=== PATIENT | male | born 1950 | race Caucasian/White ===

== ENCOUNTER → 2017-06-22 10:41 | Outpatient (CLI) | payer MEDICARE, SELFPAY | PROVIDERS: Family Provider Family Medicine Geriatric Medicine; PCP Family Medicine Geriatric Medicine; Visit Provider Nurse Practitioner Acute Care | DX: G47.33 Obstructive sleep apnea (adult) (pediatric) (principal) | CPT/HCPCS: 98960; G0463 ==

== ENCOUNTER → 2017-07-05 13:38 | Outpatient (CLI) | payer MEDICARE, SELFPAY | PROVIDERS: Family Provider Family Medicine Geriatric Medicine; PCP Family Medicine Geriatric Medicine; Visit Provider Family Medicine Geriatric Medicine | DX: R68.83 Chills (without fever) (principal) | CPT/HCPCS: 87633 ==

== ENCOUNTER → 2017-08-08 11:59 | Outpatient (CLI) | payer MEDICARE, SELFPAY ==
--- NOTE | 2017-08-08 12:25 | RAD_ITS ---
STUDY: X-RAY CHEST REASON FOR EXAM: Male, 67 years old. Shortness of breath. TECHNIQUE: PA and lateral views of the chest. COMPARISON: None. FINDINGS: Mild elevation of the left hemidiaphragm with increased markings at the left lung base suggestive of a linear scarring or atelectasis of the lingular segment of the left upper lobe. There is no demonstrated pleural abnormality. Normal size heart. Normal mediastinum and obed. Normal visualized pulmonary arteries. There is atherosclerotic tortuosity of the aortic arch and descending thoracic aorta. There are diffuse degenerative changes of the visualized thoracic spine. Normal visualized ribs, clavicles, and shoulders. There is no demonstrated abnormality of the visualized soft tissue structures of the upper abdomen. RAD/Chest PA and Lateral IMPRESSION: Increased linear markings at the left lung base suggestive of linear atelectasis and/or early infiltrate. Follow-up is recommended. Electronically Signed: Carols Menjivar MD at 12:44 EDT Tel [phone], Service support ,
[2017-08-08 12:57] LABS: Absolute Neutrophil Count 4.7 X10^3/uL (2.0-7.7); Basophil# 0.03 X10^3/uL; Basophil% 0.4 % (0-1); Eosinophil# 0.05 X10^3/uL; Eosinophils% 0.7 % (0-5); Hematocrit 46.9 % (40-54); Hemoglobin 15.9 g/dl (13.0-16.5); Lymphocyte % 21.8 % (19-41); Mean Corp Hgb Conc 33.9 g/gl (32-36); Mean Corpuscular Hgb 31.9 pg (27.0-32.0); Mean Corpuscular Volume 94.2 fL (80-94); Mean Platelet Vol. 9.1 fl (6.2-12.0); Monocyte# 0.58 X10^3/uL; Monocyte% 8.4 % (0-10); Neutrophil # 4.69 X10^3/uL (2.7-7.7); Neutrophil % 68.1 % (47-70); Platelet Count 200 K/mm3 (150-450); RBC Distribution Width CV 14.6 % (11.6-14.6); RBC Distribution Width SD 48.9 fl (35.1-43.9); Red Blood Count 4.98 M/mm3 (4.6-6.2); White Blood Count 6.9 K/mm3 (4.4-11.0)
[2017-08-08 13:00] LABS: POSITIVE COUNT NO; POSITIVE DIFFERENTIAL NO; POSITIVE MORPHOLOGY NO
[2017-08-08 13:03] LABS: D-Dimer Quantitative (DVT/PE) 0.45 FEU/ug/m (0.27-0.49)
[2017-08-08 13:15] LABS: BNP,B-Type NATRIURETIC PEPTIDE 13.6 pg/mL (0-100)
[2017-08-08 13:18] LABS: ALB/GLOB Ratio 1.2 RATIO (0.9-2.4); AST(SGOT) 41 U/L (15-37); Alanine Aminotransfer ALT/SGPT 49 U/L (16-61); Albumin, Serum 4.1 g/dL (3.2-5.0); Alkaline Phosphatase 75 U/L (45-117); Anion Gap 8 (5-15); BUN 23 mg/dL (7-18); BUN/Creat Ratio 22.8 RATIO (10-20); CPK Total, Creatine Kinase 263 U/L (39-308); Calcium,Total 9.8 mg/dL (8.5-10.1); Chloride 106 mmol/L (98-107); Creatinine, Serum 1.01 mg/dL (0.70-1.30); EST Glomerular Filtration Rate 79 mL/min (>60); Est Glom Filt Rate - Afr Amer 95 mL/min (>60); Globulin 3.4 g/dL (2.2-4.2); Glucose 83 mg/dL (74-106); Potassium 4.4 mmol/L (3.5-5.1); Protein, Total 7.5 g/dL (6.4-8.2); Sodium Level 144 mmol/L (136-145)
[2017-08-09 11:12] LABS: Myoglobin, Serum 98 ng/mL (28-72)
== END ==
PROVIDERS: Family Provider Family Medicine Geriatric Medicine; PCP Family Medicine Geriatric Medicine; Visit Provider Family Medicine Geriatric Medicine
DX: R07.9 Chest pain, unspecified (principal); R06.02 Shortness of breath
CPT/HCPCS: 36415; 71046; 80053; 82550; 83874; 83880; 84484; 85025; 85379

== ENCOUNTER → 2018-01-03 16:03 | Outpatient (CLI) | payer MEDICARE, SELFPAY ==
[2018-01-03 17:37] LABS: Vitamin D,25 Hydroxy 19.1 ng/mL (29.95-100.01)
[2018-01-03 17:55] LABS: ALB/GLOB Ratio 1.2 RATIO (0.9-2.4); AST(SGOT) 48 U/L (15-37); Alanine Aminotransfer ALT/SGPT 59 U/L (16-61); Alkaline Phosphatase 72 U/L (45-117); Anion Gap 10 (5-15); BUN 22 mg/dL (7-18); BUN/Creat Ratio 22.4 RATIO (10-20); Chloride 103 mmol/L (98-107); Creatinine, Serum 0.98 mg/dL (0.70-1.30); EST Glomerular Filtration Rate 81 mL/min (>60); Est Glom Filt Rate - Afr Amer 98 mL/min (>60); Globulin 3.4 g/dL (2.2-4.2); Glucose 93 mg/dL (74-106); PSA,Total - Annual Screen 2.03 ng/mL (0.00-4.00); Potassium 4.2 mmol/L (3.5-5.1); Protein, Total 7.4 g/dL (6.4-8.2); Sodium Level 140 mmol/L (136-145)
[2018-01-03 18:38] LABS: Hematocrit 46.4 % (40-54); Hemoglobin 15.3 g/dl (13.0-16.5); Mean Corpuscular Hgb 31.5 pg (27.0-32.0); Mean Corpuscular Volume 95.7 fL (80-94); Red Blood Count 4.85 M/mm3 (4.6-6.2); White Blood Count 7.8 K/mm3 (4.4-11.0)
[2018-01-03 18:39] LABS: Absolute Lymphocyte Count 1.76 X10^3/ul (0.83-4.51); Absolute Neutrophil Count 5.3 X10^3/uL (2.0-7.7); Basophil# 0.02 X10^3/uL; Basophil% 0.3 % (0-1); Eosinophils% 1.3 % (0-5); Lymphocyte # 1.76 X10^3/ul (4.0); Lymphocyte % 22.5 % (19-41); Mean Platelet Vol. 9.4 fl (6.2-12.0); Monocyte# 0.65 X10^3/uL; Monocyte% 8.3 % (0-10); Neutrophil # 5.29 X10^3/uL (2.7-7.7); Neutrophil % 67.5 % (47-70); POSITIVE COUNT NO; POSITIVE DIFFERENTIAL NO; POSITIVE MORPHOLOGY NO; Platelet Count 189 K/mm3 (150-450); RBC Distribution Width CV 14.2 % (11.6-14.6)
[2018-01-05 11:50] LABS: Hep C Antibodies <0.1 s/co ratio (0.0-0.9)
== END ==
PROVIDERS: Family Provider Family Medicine Geriatric Medicine; PCP Family Medicine Geriatric Medicine; Visit Provider Family Medicine Geriatric Medicine
DX: I10 Essential (primary) hypertension (principal); E55.9 Vitamin D deficiency, unspecified; Z12.5 Encounter for screening for malignant neoplasm of prostate; Z13.89 Encounter for screening for other disorder
CPT/HCPCS: 36415; 80053; 82306; 84153; 84443; 85025; 86803; G0103

== ENCOUNTER → 2018-10-04 20:00 | Outpatient (CLI) | payer MEDICARE, SELFPAY | PROVIDERS: Family Provider Family Medicine Geriatric Medicine; PCP Family Medicine Geriatric Medicine; Referring Provider Nurse Practitioner Family; Visit Provider Nurse Practitioner Family | DX: G47.33 Obstructive sleep apnea (adult) (pediatric) (principal) | CPT/HCPCS: 95811 ==

== ENCOUNTER → 2018-10-09 15:30 | Outpatient (CLI) | payer MEDICARE, SELFPAY ==
[2018-10-09 18:26] LABS: AST(SGOT) 36 U/L (15-37); Alanine Aminotransfer ALT/SGPT 52 U/L (16-61); Anion Gap 7 (5-15); BUN 31 mg/dL (7-18); BUN/Creat Ratio 31.2 RATIO (10-20); Chloride 108 mmol/L (98-107); Cholesterol 139 mg/dL (200); Creatinine, Serum 0.99 mg/dL (0.70-1.30); EST Glomerular Filtration Rate 80 mL/min (>60); Est Glom Filt Rate - Afr Amer 97 mL/min (>60); Glucose 104 mg/dL (74-106); High Density Lipoprotein 50 mg/dL; PSA,Total - Annual Screen 2.31 ng/mL (0.00-4.00); Potassium 4.5 mmol/L (3.5-5.1); Sodium Level 146 mmol/L (136-145); Thyroid Stim Hormone (TSH) 1.07 uIU/mL (0.358-3.74); Triglycerides 111 mg/dL; Very Low Density Lipoprotein 22 mg/dL (5-40)
== END ==
PROVIDERS: Family Provider Family Medicine; PCP Family Medicine; Referring Provider Family Medicine; Visit Provider Family Medicine
DX: I10 Essential (primary) hypertension (principal); K59.09 Other constipation; E78.5 Hyperlipidemia, unspecified
CPT/HCPCS: 36415; 80048; 80061; 84153; 84443; 84450; 84460; G0103

== ENCOUNTER → 2019-04-09 16:02 | Outpatient (CLI) | payer MEDICARE, SELFPAY ==
[2019-04-09 18:33] LABS: Anion Gap 4 (5-15); BUN 26 mg/dL (7-18); BUN/Creat Ratio 27.1 RATIO (10-20); Calcium,Total 9.3 mg/dL (8.5-10.1); Chloride 107 mmol/L (98-107); Creatinine, Serum 0.96 mg/dL (0.70-1.30); EST Glomerular Filtration Rate 83 mL/min (>60); Est Glom Filt Rate - Afr Amer 100 mL/min (>60); Glucose 77 mg/dL (74-106); Potassium 3.7 mmol/L (3.5-5.1); Sodium Level 142 mmol/L (136-145)
== END ==
PROVIDERS: Family Provider Family Medicine; PCP Family Medicine; Visit Provider Family Medicine
DX: I10 Essential (primary) hypertension (principal)
CPT/HCPCS: 36415; 80048

== ENCOUNTER → 2019-10-11 15:58 | Outpatient (CLI) | payer MEDICARE, SELFPAY ==
[2019-10-11 18:33] LABS: AST(SGOT) 36 U/L (15-37); Alanine Aminotransfer ALT/SGPT 34 U/L (16-61); Anion Gap 6 (5-15); BUN 25 mg/dL (7-18); Calcium,Total 9.9 mg/dL (8.5-10.1); Chloride 107 mmol/L (98-107); Cholesterol 135 mg/dL (200); Creatinine, Serum 1.04 mg/dL (0.70-1.30); EST Glomerular Filtration Rate 75 mL/min (>60); Est Glom Filt Rate - Afr Amer 91 mL/min (>60); Glucose 85 mg/dL (74-106); High Density Lipoprotein 48 mg/dL; PSA,Total - Annual Screen 2.48 ng/mL (0.00-4.00); Potassium 3.8 mmol/L (3.5-5.1); Sodium Level 143 mmol/L (136-145); Triglycerides 127 mg/dL; Very Low Density Lipoprotein 25 mg/dL (5-40)
== END ==
PROVIDERS: PCP Family Medicine; Visit Provider Family Medicine
DX: Z00.00 Encounter for general adult medical examination without abnormal findings (principal); I10 Essential (primary) hypertension; E78.5 Hyperlipidemia, unspecified
CPT/HCPCS: 36415; 80048; 80061; 84153; 84450; 84460; G0103

== ENCOUNTER → 2020-04-15 11:13 | Outpatient (CLI) | payer MEDICARE, SELFPAY ==
[2020-04-15 13:16] LABS: Anion Gap 5 (5-15); BUN 24 mg/dL (7-18); Chloride 104 mmol/L (98-107); EST Glomerular Filtration Rate 79 mL/min (>60); Est Glom Filt Rate - Afr Amer 95 mL/min (>60); Glucose 87 mg/dL (74-106); Potassium 3.7 mmol/L (3.5-5.1); Sodium Level 141 mmol/L (136-145)
== END ==
PROVIDERS: PCP Family Medicine; Referring Provider Family Medicine; Visit Provider Family Medicine
DX: I10 Essential (primary) hypertension (principal)
CPT/HCPCS: 36415; 80048

== ENCOUNTER → 2021-03-18 11:02 | Outpatient (CLI) | payer MEDICARE, SELFPAY ==
[2021-03-18 12:51] LABS: ALB/GLOB Ratio 1.1 RATIO (0.9-2.4); AST(SGOT) 56 U/L (15-37); Alanine Aminotransfer ALT/SGPT 63 U/L (16-61); Albumin, Serum 4.1 g/dL (3.2-5.0); Alkaline Phosphatase 74 U/L (45-117); Anion Gap 5 (5-15); BUN 27 mg/dL (7-18); BUN/Creat Ratio 27.2 RATIO (10-20); Calcium,Total 9.8 mg/dL (8.5-10.1); Chloride 108 mmol/L (98-107); Cholesterol 139 mg/dL (200); Creatinine, Serum 0.99 mg/dL (0.70-1.30); EST Glomerular Filtration Rate 79 mL/min (>60); Est Glom Filt Rate - Afr Amer 96 mL/min (>60); Globulin 3.6 g/dL (2.2-4.2); Glucose 95 mg/dL (74-106); High Density Lipoprotein 51 mg/dL; PSA,Total - Annual Screen 4.19 ng/mL (0.00-4.00); Potassium 3.5 mmol/L (3.5-5.1); Protein, Total 7.7 g/dL (6.4-8.2); Sodium Level 140 mmol/L (136-145); Triglycerides 71 mg/dL; Very Low Density Lipoprotein 14 mg/dL (5-40)
== END ==
PROVIDERS: PCP Family Medicine; Referring Provider Family Medicine; Visit Provider Nurse Practitioner Family
DX: I10 Essential (primary) hypertension (principal); E78.5 Hyperlipidemia, unspecified; Z12.5 Encounter for screening for malignant neoplasm of prostate
CPT/HCPCS: 36415; 80053; 80061; 84153; G0103

== ENCOUNTER 2021-05-27 17:49 | Outpatient (CLI) | payer MEDICARE, SELFPAY | END 2021-05-27 23:59 | disposition short-term general hospital (02) | PROVIDERS: PCP Family Medicine; Visit Provider Nurse Practitioner Family | DX: U07.1 COVID-19 (principal) | CPT/HCPCS: 87635; U0003; U0005 ==

== ENCOUNTER 2021-09-10 08:34 | Outpatient (CLI) | payer MEDICARE, SELFPAY ==
[2021-09-10 10:30] LABS: Anion Gap 4 (5-15); BUN 29 mg/dL (7-18); BUN/Creat Ratio 26.4 RATIO (10-20); Calcium,Total 10.3 mg/dL (8.5-10.1); Chloride 106 mmol/L (98-107); EST Glomerular Filtration Rate 70 mL/min (>60); Est Glom Filt Rate - Afr Amer 85 mL/min (>60); Glucose 103 mg/dL (74-106); Potassium 3.7 mmol/L (3.5-5.1); Sodium Level 140 mmol/L (136-145)
== END 2021-09-10 23:59 | disposition home or self-care (01) ==
LOC: MFPLAB 08:35
PROVIDERS: PCP Family Medicine; Visit Provider Family Medicine
DX: I10 Essential (primary) hypertension (principal)
CPT/HCPCS: 36415; 80048

== ENCOUNTER → 2021-12-28 | Outpatient (CLI) | payer MEDICARE, SELFPAY ==
--- NOTE | 2021-12-28 10:49 | RAD_ITS ---
STUDY: X-RAY CHEST REASON FOR EXAM: Male, 71 years old. SHORT OF BREATH TECHNIQUE: PA and lateral views of the chest. COMPARISON: Comparison is made with prior study 08/08/2017. FINDINGS: Stable mild elevation of the left hemidiaphragm. Minimal increased markings at the lung bases suggestive of a mild scarring. There is no demonstrated pleural abnormality. Normal size heart. Normal mediastinum and obed. Normal visualized pulmonary arteries. There is atherosclerotic tortuosity of the aortic arch and descending thoracic aorta. There are diffuse degenerative changes of the visualized thoracic spine. Normal visualized ribs, clavicles, and shoulders. There is no demonstrated abnormality of the visualized soft tissue structures of the upper abdomen. RAD/Chest PA and Lateral IMPRESSION: No acute abnormality is seen. Electronically Signed: Carlos Menjivar MD at 13:09 EDT ,
[2021-12-28 12:31] LABS: Absolute Lymphocyte Count 1.41 X10^3/uL (0.83-4.51); Absolute Neutrophil Count 3.5 X10^3/uL (2.0-7.7); Basophil# 0.03 X10^3/uL; Basophil% 0.5 % (0-1); Eosinophil# 0.16 X10^3/uL; Eosinophils% 2.8 % (0-5); Hematocrit 44.4 % (40-54); Lymphocyte # 1.41 X10^3/ul (0.83-4.51); Mean Corp Hgb Conc 33.8 g/dL (32-36); Mean Corpuscular Hgb 32.1 pg (27.0-32.0); Mean Corpuscular Volume 94.9 fL (80-94); Mean Platelet Vol. 9.6 fl (6.2-12.0); Monocyte# 0.56 X10^3/uL; Monocyte% 9.9 % (0-10); NRBC Flagged by Analyzer 0 % (0-5); Neutrophil # 3.45 X10^3/uL (2.7-7.7); Neutrophil % 61.3 % (47-70); Platelet Count 194 K/mm3 (150-450); RBC Distribution Width SD 49.1 fl (35.1-43.9); Red Blood Count 4.68 M/mm3 (4.6-6.2); White Blood Count 5.6 K/mm3 (4.4-11.0)
[2021-12-28 12:44] LABS: Vitamin B12 753 pg/mL (211-911)
[2021-12-28 12:52] LABS: ALB/GLOB Ratio 1.3 RATIO (0.9-2.4); AST(SGOT) 59 U/L (15-37); Alanine Aminotransfer ALT/SGPT 80 U/L (16-61); Albumin, Serum 4.2 g/dL (3.2-5.0); Alkaline Phosphatase 74 U/L (45-117); Anion Gap 2 (5-15); BUN 25 mg/dL (7-18); BUN/Creat Ratio 24.3 RATIO (10-20); Calcium,Total 10.5 mg/dL (8.5-10.1); Chloride 106 mmol/L (98-107); Creatinine, Serum 1.03 mg/dL (0.70-1.30); EST Glomerular Filtration Rate 76 mL/min (>60); Est Glom Filt Rate - Afr Amer 92 mL/min (>60); Globulin 3.2 g/dL (2.2-4.2); Glucose 96 mg/dL (74-106); Potassium 3.4 mmol/L (3.5-5.1); Protein, Total 7.4 g/dL (6.4-8.2); Sodium Level 141 mmol/L (136-145); Thyroid Stim Hormone (TSH) 2.75 uIU/mL (0.358-3.74)
[2021-12-29 12:02] LABS: Internal QC Validated? YES +Cl - CLEAR BKGD; Monotest Negative (Negative)
== END | disposition home or self-care (01) ==
LOC: MTLAB 10:48
PROVIDERS: PCP Family Medicine; Referring Provider Family Medicine; Visit Provider Family Medicine
DX: R06.02 Shortness of breath (principal); R53.83 Other fatigue
CPT/HCPCS: 36415; 71046; 80053; 82607; 84443; 85025; 86308

== ENCOUNTER → 2022-01-04 | Outpatient (CLI) | payer MEDICARE, SELFPAY ==
--- NOTE | 2022-01-04 08:01 | US_ITS ---
STUDY: ABDOMINAL ULTRASOUND - RIGHT UPPER QUADRANT REASON FOR VISIT: Male, 71 years old elevated LFTs TECHNIQUE: Ultrasound evaluation of the right upper quadrant was performed with real-time and static wade-scale imaging. TECHNICAL QUALITY: Adequate. COMPARISON: None. FINDINGS: Liver: The liver measures 16.2 cm. There is increased echogenicity consistent with fatty infiltration. The bile ducts are within normal limits. There is hepatic color flow. The direction of portal flow is hepatopetal. There is no demonstrated mass lesion. Gallbladder: Normal distended gallbladder. The gallbladder wall measures 2 mm. There is a negative sonographic Shepherd''s sign. There is no pericholecystic fluid. There are no gallstones. Common Bile Duct (C.B.D.): The common bile duct measures 5 mm. Pancreas: Normal size of the head, body and tail of the pancreas. There is increased echogenicity of the pancreas. There is no demonstrated pancreatic mass or cyst. Right Kidney: Normal size of the right kidney. The right kidney measures 12.1 x 6.3 x 5.4 cm. Normal renal cortex. The right cortex measures 1.4 cm. There is no demonstrated renal mass or cyst. There is no right hydronephrosis. US/Abdomen Limited IMPRESSION: Fatty infiltration of the liver, no discrete lesion Nonspecific echogenic pancreas Electronically Signed: Cisco Lai MD at 9:13 EDT ,
== END | disposition home or self-care (01) ==
LOC: CVS 08:00
PROVIDERS: PCP Family Medicine; Referring Provider Family Medicine; Visit Provider Family Medicine
DX: R06.02 Shortness of breath (principal)
CPT/HCPCS: 76705

== ENCOUNTER → 2022-01-10 | Outpatient (CLI) | payer MEDICARE, SELFPAY ==
--- NOTE | 2022-01-10 10:48 | ECHOD_ITS ---
Reason For Study: SOB Procedure This was a 2D Doppler, Color Flow transthoracic echocardiogram. Exam performed in department. Left Ventricle Normal LV size. Left ventricular systolic function is normal. The estimated ejection fraction is 60 %. No regional wall motion abnormalities noted. Right Ventricle Normal RV size. Normal systolic function. Atria Normal left atrium. Normal right atrium. Patent foramen ovale. Mitral Valve Normal mitral valve. Mild (1+) eccentric mitral valve insufficiency. Tricuspid Valve Normal tricuspid valve. Great Vessels Normal aortic root. The pulmonary artery is normal size. Normal inferior vena cava. Pericardium/Pleural No pericardial effusion. Medication 22 gauge I.V. with prn adaptor inserted into right arm. Performed a rapid injection of agitated mix of 9 cc saline and 1cc air to assess for atrial septal defect. MMode/2D Measurements & Calculations RVDd: 4.2 cm Ao root diam: 3.5 cm LAV(MOD-sp4): 94.5 ml LVAd ap4: 38.1 cm2 SV(MOD-sp4): 76.1 ml SV(sp4-el): 79.2 ml LVLd ap4: 9.5 cm EDV(MOD-sp4): 129.9 ml EDV(sp4-el): 130.3 ml LVAs ap4: 21.7 cm2 LVLs ap4: 7.8 cm ESV(MOD-sp4): 53.9 ml ESV(sp4-el): 51.0 ml EF(MOD-sp4): 58.5 % EF(sp4-el): 60.8 % LA dimension(2D): 4.3 cm LA A4 area: 28.8 cm2 RA A4 area: 23.8 cm2 Time Measurements MV dec time: 0.20 sec Doppler Measurements & Calculations MV E max leonel: 48.4 cm/sec Lat Peak E' Leonel: 12.5 cm/sec Med Peak E' Leonel: 7.2 cm/sec MV A max leonel: 72.1 cm/sec E/E' lat: 3.9 E/E' med: 6.7 MV E/A: 0.67 MV V2 max: 71.4 cm/sec MV dec slope: 258.5 cm/sec2 Ao V2 max: 122.6 cm/sec MV max P.0 mmHg Ao max P.0 mmHg MV V2 mean: 40.6 cm/sec Ao V2 mean: 85.7 cm/sec MV mean P.75 mmHg Ao mean P.4 mmHg MV V2 VTI: 24.8 cm Ao V2 VTI: 26.6 cm LV V1 max: 99.3 cm/sec PA V2 max: 95.4 cm/sec TR max leonel: 262.9 cm/sec LV V1 max P.0 mmHg TR max P.6 mmHg LV V1 mean P.0 mmHg LV V1 mean: 66.1 cm/sec LV V1 VTI: 20.9 cm ECHO/Echo Complete Interpretation Summary Normal LV size. Left ventricular systolic function is normal. The estimated ejection fraction is 60 %. Patent foramen ovale. Mild (1+) eccentric mitral valve insufficiency. Ordering Physician: Jazmin Frost Referring Physician: Jazmin Frost Performed By: Sapna Noel RCS
== END | disposition home or self-care (01) ==
LOC: CVS 10:47
PROVIDERS: PCP Family Medicine; Referring Provider Family Medicine; Visit Provider Family Medicine
DX: R06.02 Shortness of breath (principal)
CPT/HCPCS: 93306; A4216

== ENCOUNTER → 2022-09-06 | Outpatient (CLI) | payer MEDICARE, SELFPAY | END | disposition home or self-care (01) | PROVIDERS: PCP Family Medicine; Referring Provider Surgery; Visit Provider Surgery | DX: K42.9 Umbilical hernia without obstruction or gangrene (principal) | CPT/HCPCS: 87081 ==

== ENCOUNTER 2022-09-28 11:15 | Day surgery (SDC) | payer MEDICARE, SELFPAY ==
--- NOTE | 2022-09-20 08:51 | EKG12_ITS ---
Test Reason : PREOP Blood Pressure : / mmHG Vent. Rate : 067 BPM Atrial Rate : 067 BPM P-R Int : 182 ms QRS Dur : 110 ms QT Int : 410 ms P-R-T Axes : 055 -60 032 degrees QTc Int : 433 ms Normal sinus rhythm with sinus arrhythmia Left axis deviation Abnormal ECG Confirmed by ROSA MARIA HILARIO, RENEE ([id number]), purchasing expeditor CURTIS HANSEN ([id number]) on 09/20/2022 11:23:25 AM Referred By: KEVON Confirmed By:RENEE CRANE MD
[2022-09-20 09:49] LABS: Hemoglobin 14.4 g/dL (13.0-16.5); Mean Corp Hgb Conc 32.7 g/dL (32-36); Mean Corpuscular Hgb 31.9 pg (27.0-32.0); Mean Corpuscular Volume 97.3 fL (80-94); Mean Platelet Vol. 9.7 fl (6.2-12.0); Platelet Count 185 K/mm3 (150-450); RBC Distribution Width CV 13.7 % (11.6-14.6); RBC Distribution Width SD 49.1 fl (35.1-43.9); Red Blood Count 4.52 M/mm3 (4.6-6.2); White Blood Count 5.9 K/mm3 (4.4-11.0)
[2022-09-20 10:12] LABS: Anion Gap 7 (5-15); BUN 25 mg/dL (7-18); BUN/Creat Ratio 25.5 RATIO (10-20); Calcium,Total 9.8 mg/dL (8.5-10.1); Chloride 107 mmol/L (98-107); Creatinine, Serum 0.98 mg/dL (0.70-1.30); EST Glomerular Filtration Rate 80 mL/min (>60); Est Glom Filt Rate - Afr Amer 97 mL/min (>60); Glucose 90 mg/dL (74-106); Potassium 3.3 mmol/L (3.5-5.1); Sodium Level 143 mmol/L (136-145)
[2022-09-28] VITALS (8 sets, daily range): BP systolic 113–148; BP diastolic 74–85; PULSE 65–83; RESP 14–16; TEMP 36.3–37.7; O2SAT 92–96; BMI 32.1
[2022-09-28] MEDS: Lactated Ringers 1,000 ML 15 ML IV ×2 (12:19→18:16)
--- NOTE | 2022-09-28 12:40 | HP.PCM_ITS ---
History and Physical Date of Admission: 09/28/22 Date of Service:? 09/06/22 MR#: [id number] Acct:
--- NOTE | 2022-09-28 12:40 | PCM.HP.BLA ---
History and Physical Date of Admission: 09/28/22 Date of Service:? 09/06/22 MR#: [id number] Acct: [id number] Name:EDNA WELLS Rep #: [id number] : 1950 ? ? Provider: Dr. Tom Corona MD Age/Sex:? 72/M ? ? Location: [facility] Status: Signed Intake Vital Signs ? 09/06/2308:08 Height 5 ft 10 in Weight: 228 lb 8 oz BMI 32.8 BP 143/84 H Blood Pressure Location Rt radial Position Sitting Respiration 16 Pulse 63 Pulse Source Monitor Temp 97.3 F L Temp Source Temporal Pulse Oximetry (%) 95 Oxygen Delivery Method room air Intake Visit Reasons:?UMBILICAL HERNIA Chief Complaint: umbilical hernia Allergies Penicillins [PCN] Allergy (Verified 09/06/22 09:10) Hives PFSH Surgical History?(Updated 09/06/22 @ 09:07 by Kenzie Fowler) History of appendectomy Hx of tonsillectomy Family History?(Updated 09/06/22 @ 09:08 by Kenzie Fowler) Father DiabetesMother ArthritisMother CancerMother CVA (cerebral vascular accident) Social History? Smoking Status:? Never smoker HPI HPI HPI: Patient is a 72-year-old male who presents for evaluation of umbilical hernia.? He is referred by Dr. Jazmin Frost, but he is also familiar to me from a hernia clinic held mid March 2022.? This finding was first noticed by patient several years ago.? Patient is not able to recall how this occurred.? He admits that it has not progressed a whole lot.? He has observed some weight gain personally and confesses that he is not good at losing.,? But alongside of this feels as though he has some abdominal distention and questions whether this is related to the hernia.? He does deny any change to his GI function generally.? He denies any pain with this hernia. Mr. Park does report that he is due for a surveillance colonoscopy on account of a history of polyps. Patient has a remote personal history of smoking cigars (greater than 10 years ago).? Has no personal history of recurrent cutaneous infections including staph. Patient remains active helping his son cut wood for heating his home. Pertinent surgical history includes: Appendectomy Mr. Park states that he would like to have his hernia addressed as soon as possible given that he has upcoming plans to go on a cruise starting November 22. ROS General General: No weight change, appetite, fatigue, colon cancer, breast cancer or weakness HEENT HEENT: No difficulty swallowing, eye injury, eye surgery, swollen glands or hoarseness Endo Endocrine: No thyroid disease, diabetes mellitus, thyroid cancer, Hair loss, heat intolerance or cold intolerance Skin Skin: No rash or changing moles Breast Breast: No left breast lump, right breast lump, nipple discharge, breast pain, abnormal mammogram, abnormal US or breast enlargement Musc Musculoskeletal: No back problems, arthritis, rheumatoid arthritis, gout or joint pain Cardio Cardiovascular: Yes high blood pressure; No murmur, pacemaker, heart disease, atrial fibrillation, heart attack, heart stent, palpitations, shortness of breat with exertion or chest pain Psych Psychiatric: No depression, anxiety or hearing voices Resp Respiratory: No shortness of breath, Yes sleep apnea, No cough, No COPD, No asthma, No emphysema and No wheezing Gastro Gastrointestinal: No abdominal pain, No nausea or vomiting, No diarrhea, No constipation, No blood in stool, No acid reflux, Yes hemorrhoids, No ulcers, No gallbladder problem and No black,tarry stools Pete Hematologic: No blood thinners, No blood disorders, No bleeding, No anemia and No blood clots Neuro Neurologic: No system reviewed and no additional complaints, except as documented, No as per HPI, No abnormal gait, No abnormal hearing, No abnormal movements, No abnormal speech, No behavioral changes, No burning sensations, No confusion, No convulsions, No disequilibrium, No dizziness, No localized weakness, No frequent falls, No headache(s), No lack of coordination, No loss of vision, No memory loss, No numbness, No other visual disturbances, No radicular pain, No restless legs, No sensory deficit, No syncope, No tingling, No tremor(s), No weakness and No other Exam Const General: cooperative, comfortable, no acute distress and well developed GI Inspection: non-distended, obesity and no scars Palpation: hernia umbilical (Fat-containing but reducible to a fascial defect of approximately 2.5 cm) Assessment and Plan Assessment and Plan (1) Umbilical hernia: ?Status:?Chronic ?Comment: Is a 72-year-old male who presents for evaluation of a umbilical hernia that has been present for the last several years.? Significantly patient denies any pain or obstructive symptomology associated with this finding, but has noticed some growth since its first observation.? Therefore, he requests elective repair.? Given its size (estimated greater than 2.5 cm) and patient's high level of activity, I have recommended a minimally invasive repair with mesh.? Patient readily accepts this recommendation and wishes to proceed as soon as possible given his travel plans this summer. ?Plan: ? Obtain MRSA screening ? Robot-assisted umbilical hernia repair with mesh at first mutually agreeable date.? Procedure to be performed as a outpatient surgery ? ? ? Orders: Orders MRSA/SAID SCREEN (PRE SURG) Today K42.9 - Umbilical hernia without obstruction or gangrene I have examined the patient and the H&P has been reviewed. There are no clinical changes since date of exam. Procedure and post procedure expectations were reviewed. Neither patient nor his have any further questions. Therefore proceed to the upright in room for robot-assisted umbilical hernia repair with mesh as scheduled.
[2022-09-28] MEDS: Clindamycin 900 MG/50 ML BAG 75 MG IV (13:26)
[2022-09-28] MEDS: 0.9% Normal Saline (Pres. free 10 ML Vial (16:20)
[2022-09-28] MEDS: Bupivacaine 0.25% 30 ML Vial (16:20)
[2022-09-28] MEDS: BUPIVACAINE LIPOSOME/PF 20 ML VIAL OPERA.SITE (16:20)
--- NOTE | 2022-09-28 16:31 | OP.PCM_ITS ---
Problems Associated Problem List Diagnoses (1) Umbilical hernia: Report of Operation Date of Procedure: 09/28/22 Pre-Operative Diagnosis: Umbilical hernia Post-Operative Diagnosis: Same Surgery/Procedure Performed:: 1. Robot-assisted transabdominal preperitoneal repair of umbilical hernia with mesh 2. Transversus abdominis plane block Description of Surgical Findings:: 2 cm long X 1.25 cm wide umbilical hernia defect containing peritoneal fat Surgeon: Tom Corona development vice president: Loretta Chavira Type of Anesthesia: General/Supplemental Anesthesiologist: Petey Polo Special Medications: 50 mL Marcaine, 15 mL Exparel, 15 mL saline for TAP block Specimen's removed: N/A Drains: N/A Estimated Blood Loss (mL): 10 Description of Procedure: After appropriate identification in the preoperative holding area, the patient was brought to the operating room suite where the was positioned supine the operating table. Preoperative antibiotics were administered. Patient was then induced with a general anesthetic. Patient's abdomen was prepped and draped in the usual sterile fashion. Meanwhile anesthesia placed a orogastric tube to decompress the stomach. A formal timeout followed to confirm patient and procedure. Procedure was begun with a Veress entry at Martino's point. Once the set point pressure was reached, this Veress needle was exchanged for an optical trocar and an optical entry was made in this location. Laparoscopic investigation revealed no inadvertent injury to the viscera below. 2 additional 8 mm robotic trochars were placed along the abdominal wall laterally taking care to avoid the bony prominences of the costal margin and the ASIS. A transversus abdominis plane block was created with a mixture of saline, Exparel, and Marcaine with a total volume 80 mL under laparoscopic vision prior to placement of the remaining 2 ports. The robot was then brought in and docked in standard fashion. Robotically a peritoneal flap was raised approximately 2 cm medial from my trocars and carried this away towards the contralateral abdominal wall. Great care was taken to lower the peritoneum off of the posterior rectus sheath and by to minimize the risk for rents of the peritoneum. However, the peritoneum along the cephalad aspect of the abdominal wall was extremely attenuated and several large rents were made despite this care with dissection. Perforating vessels were sealed with bipolar energy to maintain hemostasis as this flap dissection proceeded. I then addressed the hernia directly by opening the scar tissue about the hernia sac and carefully applying manual traction downward until the fat within the hernia was fully reduced. The flap was then further dissected laterally until it appeared we had adequate width. The hernia defect was measured at 1.25 cm wide by 2 cm long. The hernia defect was closed with a #1 stratafix suture by running the fascial defect closed and then running the suture back upon itself. Next a 10 cm x [address] coated mesh was introduced into the peritoneum and a 3-0 V-Loc suture was used to chandelier the mesh. A 3-0 Vicryl suture was then used to loosely tacked the mesh in the center as well as the 4 cardinal directions. Because there was some curling at the periphery of the mesh, I elected to sew the circumference of the mesh to the anterior abdominal wall using 3 oh V-Loc suture. Lastly the peritoneum was closed with 3-0 Vicryl V-Loc suture in a running fashion and doubling back on the primary suture line. All needles were removed from the peritoneum and case counts were correct x2. Then the robot was undocked and the trocars were removed. Additional local anesthetic was instilled and the port sites were closed with interrupted 4-0 Monocryl in subcuticular fashion. Steri-Strips and OpSite dressings were applied. Patient was awakened from anesthesia and transferred to PACU for ongoing care. Grafts/Implants Used: Ventralight ST mesh reference [id number], lot [id number], 12/27/2023 Complications None Admit VTE Documentation VTE Mechan Device Prophylaxis: SCD's
--- NOTE | 2022-09-28 17:08 | EX.PCM.DISCH ---
Discharge Instructions Diet Discharge Diet: No restrictions Activity Discharge Activity: May Not Drive (While taking narcotic pain medication) and May Shower May shower in (days): 2 Ice area for (Minutes): 20 Lifting Restrictions: No lifting greater than 10 pounds for the next 5 weeks Dressing / Incision Call your doctor if your incision/area has: Continuous Slow Oozing, Increased Pain/ Swelling, Increased Redness, Foul Smelling Discharge and Swelling at the incision site Call your doctor if you observe: Fever of 101 or Higher, Inability to urinate and Inability to have a bowel movement Remove Dressing in: 2 days (Please leave Steri-Strips intact until they fall off spontaneously or are taken off at your follow-up visit) Cleanse incision/area with: Soap & Water and Keep Dressing Clean & Dry Follow Up Care Please Follow Up With: Tom Corona MD When: 1 week postop Test Results: Test results from this visit will be discussed in further detail at your follow-up appointment, if applicable. Discharge Plan Admission Primary Reason for Your Visit: umbilical hernia repair Attending Provider: Tom Corona Primary Care Provider: Jazmin Frost Discharge Orders/Prescriptions Prescriptions: New oxycodone 5 mg tablet 5 mg PO Q6H PRN (Reason: pain) 3 Days Qty: 10 0RF No Action hydrochlorothiazide 25 MG tablet 25 mg PO DAILY Gabapentin [Gralise] 600 MG Tab.Er.24h 600 mg PO QHS Ageless Male 1 tab PO/SL DAILY pravastatin 40 mg Tablet 40 mg PO QHS omeprazole 40 mg Capsule,Delayed Release(Dr/Ec) 40 mg PO QHS tamsulosin [Flomax] 0.4 mg Capsule 0.4 mg PO QHS sertraline [Zoloft] 25 mg Tablet 25 mg PO DAILY zinc 50 mg Tablet 50 mg PO DAILY Excedrin Migraine 250-250-65 mg Tablet 1 tab PO Q6H PRN (Reason: Migraine Headache) Multivitamin, Mineral Formula Tablet 1 tab PO DAILY Referrals / Follow Up: Jazmin Frost MD [Primary Care Provider] - Disposition Disposition (needs filled in before D/C Order can be placed): Home, Self Care
== END 2022-09-28 18:44 | disposition home or self-care (01) ==
LOC: SDC 11:23 → AC 11:24
PROVIDERS: Anesthesiology; PCP Family Medicine; Referring Provider Surgery; Visit Provider Surgery
PROC: 0WQF4ZZ Repair Abdominal Wall, Percutaneous Endoscopic Approach (ICD-10-PCS; CPT 49591; principal; 2022-09-28 12:35)
DX: K42.9 Umbilical hernia without obstruction or gangrene (principal); I10 Essential (primary) hypertension; E78.00 Pure hypercholesterolemia, unspecified; Z87.891 Personal history of nicotine dependence; Z79.82 Long term (current) use of aspirin; Z79.899 Other long term (current) drug therapy
CPT/HCPCS: 49591; S2900; 00830; 36415; 80048; 85027; 93005; J7120; C1781; J2405; J3490

== ENCOUNTER → 2022-11-15 | Outpatient (CLI) | payer MEDICARE, SELFPAY ==
[2022-11-15 12:45] LABS: Microalbumin,Random Urine 6.3 mg/L (NO RANGE EST.); Microalbumin:Creatinine Ratio 9.5 mg/g CRE (<30 mg/g CRE)
[2022-11-15 12:51] LABS: AST(SGOT) 38 U/L (15-37); Alanine Aminotransfer ALT/SGPT 57 U/L (16-61); Albumin, Serum 3.7 g/dL (3.2-5.0); Alkaline Phosphatase 109 U/L (45-117); Bilirubin, Direct 0.11 mg/dL (0.00-0.30); Cholesterol 150 mg/dL (200); Globulin 3.7 g/dL (2.2-4.2); High Density Lipoprotein 48 mg/dL; Protein, Total 7.4 g/dL (6.4-8.2); Triglycerides 79 mg/dL; Very Low Density Lipoprotein 16 mg/dL (5-40)
== END | disposition home or self-care (01) ==
LOC: MFPLAB 09:37
PROVIDERS: PCP Family Medicine; Visit Provider Family Medicine
DX: R74.8 Abnormal levels of other serum enzymes (principal); I10 Essential (primary) hypertension
CPT/HCPCS: 36415; 80061; 80076; 82043; 82570

== ENCOUNTER → 2023-03-10 | Outpatient (CLI) | payer MEDICARE, SELFPAY | END | disposition home or self-care (01) | PROVIDERS: PCP Family Medicine; Referring Provider Nurse Practitioner Acute Care; Visit Provider Nurse Practitioner Acute Care | DX: G47.31 Primary central sleep apnea (principal) | CPT/HCPCS: 95811 ==

== ENCOUNTER 2023-04-26 10:12 | Outpatient (CLI) | payer MEDICARE, SELFPAY ==
[2023-04-26 12:32] LABS: Absolute Neutrophil Count 3.2 X10^3/uL (2.0-7.7); Basophil# 0.04 X10^3/uL; Basophil% 0.7 % (0-1); Eosinophil# 0.15 X10^3/uL; Eosinophils% 2.8 % (0-5); Hematocrit 44.2 % (40-54); Hemoglobin 14.7 g/dL (13.0-16.5); Mean Corp Hgb Conc 33.3 g/dL (32-36); Mean Corpuscular Hgb 31.6 pg (27.0-32.0); Mean Corpuscular Volume 95.1 fL (80-94); Mean Platelet Vol. 9.8 fl (6.2-12.0); Monocyte# 0.54 X10^3/uL; NRBC Flagged by Analyzer 0 % (0-5); Neutrophil # 3.24 X10^3/uL (2.7-7.7); Neutrophil % 60.1 % (47-70); Platelet Count 178 K/mm3 (150-450); RBC Distribution Width CV 14.4 % (11.6-14.6); RBC Distribution Width SD 50.1 fl (35.1-43.9); Red Blood Count 4.65 M/mm3 (4.6-6.2); White Blood Count 5.4 K/mm3 (4.4-11.0)
[2023-04-26 12:51] LABS: ALB/GLOB Ratio 1.2 RATIO (0.9-2.4); AST(SGOT) 35 U/L (15-37); Alanine Aminotransfer ALT/SGPT 44 U/L (16-61); Albumin, Serum 3.8 g/dL (3.2-5.0); Alkaline Phosphatase 74 U/L (45-117); Anion Gap 4 (5-15); BUN 28 mg/dL (7-18); BUN/Creat Ratio 27.2 RATIO (10-20); Calcium,Total 10.6 mg/dL (8.5-10.1); Chloride 107 mmol/L (98-107); Cholesterol 152 mg/dL (200); Creatinine, Serum 1.03 mg/dL (0.70-1.30); EST Glomerular Filtration Rate 76 mL/min (>60); Est Glom Filt Rate - Afr Amer 91 mL/min (>60); Globulin 3.3 g/dL (2.2-4.2); Glucose 102 mg/dL (74-106); High Density Lipoprotein 52 mg/dL; Potassium 3.4 mmol/L (3.5-5.1); Protein, Total 7.1 g/dL (6.4-8.2); Sodium Level 141 mmol/L (136-145); Triglycerides 65 mg/dL; Very Low Density Lipoprotein 13 mg/dL (5-40)
== END 2023-04-26 23:59 | disposition home or self-care (01) ==
LOC: MFPLAB 10:12
PROVIDERS: PCP Family Medicine; Visit Provider Family Medicine
DX: I10 Essential (primary) hypertension (principal); E87.6 Hypokalemia
CPT/HCPCS: 36415; 80053; 80061; 85025

== ENCOUNTER → 2023-04-27 | Outpatient (CLI) | payer MEDICARE, SELFPAY ==
--- OUTSIDE RECORDS SUMMARY | 2023-04-27 08:11 | XMS RPT_ITS | CCD ---
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 Name Role Phone Jazmin Frost Primary Care Provider JAZMIN FROST Primary Care Unavailable SIERRA ENCISO Referring Unavailable SIERRA ENCISO Attending Unavailable JAZMIN FROST Primary Care Unavailable WILL DAWSON Attending Unavailable JAZMIN FROST Primary Care Unavailable WILL DAWSON Referring Unavailable JAZMIN FROST Primary Care Unavailable SIERRA ENCISO Attending Unavailable Allergies Allergy Classification Reported Allergen(s) Allergy Type Date of Onset Reaction(s) Facility (2 sources) Penicillins; Translations: [PENICILLINS] Drug Allergy 06-26-2006 [facility] (9 sources) Sulfonamides (Antibiotic); Translations: [SULFA (SULFONAMIDE ANTIBIOTICS)] Drug Allergy 03-26-2021 [facility] Work Phone: (7 sources) Penicillins Drug Allergy 06-26-2006 [facility] Medications Completed/Discontinued Medications Medication Drug Class(es) Dates Sig (Normalized) Sig (Original) acetaminophen 250 mg / aspirin 250 mg / caffeine 65 mg oral tablet (8 sources) Platelet Aggregation Inhibitor, Nonsteroidal Anti-inflammatory Drug, Central Nervous System Stimulant, Methylxanthine take 1 tablet by mouth every six hours as needed Aspirin-Acetamino phen-Caffeine (EXCEDRIN MIGRAINE) 250-250-65 mg per tablet Take 1 tablet by mouth every 6 hours as needed for pain. 0 Active Problems Active Problems Problem Classification Problem Date Documented Da te Episodic/Chronic Other and unspecified benign neoplasm (3 sources) History of polyp of colon; Translations: [Personal history of colonic polyps] Onset: 04-19-2023 03-24-2023 Episodic Other and unspecified benign neoplasm (1 source) Personal history of colonic polyps; Translations: [History of colonic polyps] Onset: 04-19-2023 Episodic Other inflammatory condition of skin (8 sources) Rosacea; Translations: [Rosacea, unspecified] Onset: 06-27-2006 06-27-2006 Chronic Other male genital disorders (2 sources) Secondary erectile dysfunction; Translations: [Male erectile dysfunction, unspecified] Chronic Other screening for suspected conditions (not mental disorders or infectious disease) (5 sources) Raised prostate specific antigen; Translations: [Elevated prostate specific antigen [PSA]] Onset: 03-27-2023 Episodic Past or Other Problems Problem Classification Problem Date Documented Da te Episodic/Chronic Allergic reactions (8 sources) Radiation-induced dermatosis; Translations: [Other skin changes due to chronic exposure to nonionizing radiation] Onset: 06-27-2006 06-27-2006 Episodic Other and unspecified benign neoplasm (8 sources) Benign neoplasm of skin of trunk; Translations: [Other benign neoplasm of skin of trunk] Onset: 06-27-2006 06-27-2006 Episodic Other circulatory disease (8 sources) Non-neoplastic nevus; Translations: [Nevus, non-neoplastic] Onset: 06-27-2006 06-27-2006 Episodic Other non-epithelial cancer of skin (8 sources) History of malignant neoplasm of skin; Translations: [Personal history of other malignant neoplasm of skin] Onset: 06-27-2006 06-27-2006 Episodic Other skin disorders (8 sources) Seborrheic keratosis; Translations: [Other seborrheic keratosis] Onset: 06-27-2006 06-27-2006 Episodic Other skin disorders (8 sources) Scar conditions and fibrosis of skin; Translations: [Scar conditions and fibrosis of skin] Onset: 06-27-2006 06-27-2006 Episodic Other skin disorders (8 sources) Disorder of skin pigmentation; Translations: [Disorder of pigmentation, unspecified] Onset: 06-27-2006 06-27-2006 Episodic Other skin disorders (8 sources) Disorder of skin; Translations: [Hypertrophic disorder of the skin, unspecified] Onset: 06-27-2006 06-27-2006 Episodic Results Test Name Value Interpretation Reference Range Facil ity Vital Signs Date Time Vital Sign Value Performing Clinician George adams 04-19-2023 08:45-0500 Diastolic blood pressure 84 mm[Hg] Sierra Enciso MD Work Phone: [facility] 04-19-2023 08:45-0500 Heart rate 85 /min Sierra Enciso MD Work Phone: [facility] 04-19-2023 08:45-0500 Respiratory rate 16 /min Sierra Enciso MD Work Phone: [facility] 04-19-2023 08:45-0500 SaO2% (BldA) [Mass fraction] 93 % Sierra Enciso MD Work Phone: [facility] 04-19-2023 08:45-0500 Systolic blood pressure 153 mm[Hg] Sierra Enciso MD Work Phone: [facility] 04-19-2023 07:00-0500 Body temperature 98.4 [degF] Sierra Enciso MD Work Phone: [facility] 04-19-2023 07:00-0500 Body weight 105 kg Sierra Enciso MD Work Phone: [facility] 04-04-2023 09:29-0500 Body height 177.8 cm Will Dawson PA-C Work Phone: [facility] 04-04-2023 09:29-0500 Body temperature 98.49 [degF] Will Dawson PA-C Work Phone: [facility] 04-04-2023 09:29-0500 Body weight 104.96 kg Will Dawson PA-C Work Phone: [facility] 04-04-2023 09:29-0500 Diastolic blood pressure 86 mm[Hg] Will Dawson PA-C Work Phone: [facility] 04-04-2023 09:29-0500 Heart rate 80 /min Will Dawson PA-C Work Phone: [facility] 04-04-2023 09:29-0500 Respiratory rate 14 /min Will Dawson PA-C Work Phone: [facility] 04-04-2023 09:29-0500 SaO2% (BldA) [Mass fraction] 95 % Will Dawson PA-C Work Phone: [facility] 04-04-2023 09:29-0500 Systolic blood pressure 140 mm[Hg] Will Dawson PA-C Work Phone: [facility] 03-24-2023 08:33-0500 Body height 177.8 cm Sierra Enciso MD Work Phone: [facility] 03-24-2023 08:33-0500 Body temperature 97.7 [degF] Sierra Enciso MD Work Phone: [facility] 03-24-2023 08:33-0500 Body weight 106.23 kg Sierra Enciso MD Work Phone: [facility] 03-24-2023 08:33-0500 Diastolic blood pressure 82 mm[Hg] Sierra Enciso MD Work Phone: [facility] 03-24-2023 08:33-0500 Heart rate 79 /min Sierra Enciso MD Work Phone: [facility] 03-24-2023 08:33-0500 SaO2% (BldA) [Mass fraction] 95 % Sierra Enciso MD Work Phone: [facility] 03-24-2023 08:33-0500 Systolic blood pressure 130 mm[Hg] Sierra Enciso MD Work Phone: [facility] 03-25-2022 09:48-0500 Body height 177.8 cm Will Dawson PA-C Work Phone: [facility] 03-25-2022 09:48-0500 Body temperature 99.19 [degF] Will Dawson PA-C Work Phone: [facility] 03-25-2022 09:48-0500 Body weight 102.51 kg Will Dawson PA-C Work Phone: [facility] 03-25-2022 09:48-0500 Diastolic blood pressure 80 mm[Hg] Will Dawson PA-C Work Phone: [facility] 03-25-2022 09:48-0500 Heart rate 88 /min Will Dawson PA-C Work Phone: [facility] 03-25-2022 09:48-0500 SaO2% (BldA) [Mass fraction] 96 % Will Dawson PA-C Work Phone: [facility] 03-25-2022 09:48-0500 Systolic blood pressure 138 mm[Hg] Will Dawson PA-C Work Phone: [facility] Encounters Encounter Date Encounter Type Care Provider Facility Start: 04-19-2023 End: 04-19-2023 ambulatory JAZMIN FROST Facility:[facility] Start: 04-19-2023 End: 04-19-2023 Subsequent hospital visit by physician Sierra Enciso MD Work Phone: Ambulatory Surgery Procedures Date Procedure Procedure Detail Performing Clinician Start: 04-19-2023 Colonoscopy flx dx w /collj spec when pfrmd Sierra Enciso MD Work Phone: Start: 04-19-2023 SURGICAL PATHOLOGY Rita Enciso MD Work Phone: Start: 04-19-2023 Colonoscopy Sierra Enciso MD Work Phone: Start: 04-04-2023 Urnls dip stick/tabl et rgnt auto w/o microscopy Will Dawson PA-C Work Phone: Start: 03-25-2022 Urnls dip stick/tabl et rgnt auto w/o microscopy Will Dawson PA-C Work Phone: Start: 06-27-2016 Colonoscopy Will Mo obed PA-C Work Phone: Plan of Treatment Date Care Activity Detail Author Start: 04-19-2028 Screening for malign ant neoplasm of colon [facility] Start: 09-17-2025 Urine microalbumin profile DTaP,Tdap,Td Vaccine (2 - Td or Tdap) [facility] Start: 04-04-2024 End: 07-04-2024 Prostate specific Ag [Mass/volume] in Serum or Plasma PSA/PROSTSPECAG DIAG Lab Routine Elevated prostate specific antigen (PSA) Impotence of organic origin Expected: 04/04/2024 (Approximate), Expires: 07/04/2024 [facility] Work Phone: Immunizations Immunization Date Immunization Notes Care Provider Sera kennedy 01-15-2022 influenza virus vacc ine, unspecified formulation Sierra Enciso MD Work Phone: [facility] Payers Date Payer Category Payer Medicare [employer] MEDICARE A ETNA MEDICARE PPO [id number] 2021-Present [phone] [address] [place] [address] PPO [id number] 2021 Medicare [employer] MEDICARE A ETNA MEDICARE PPO [id number] 2021-Present [phone] [address] [place] [address] PPO [id number] 2021 Medicare [id number] Social History Date Type Detail Facility Start: 06-08-2016 End: 03-24-2023 Tobacco smoking status NHIS Ex-smoker [facility] Start: 06-08-2016 End: 03-24-2023 Tobacco use and exposure Smokeless tobacco non-user [facility] Start: 03-26-2021 End: 03-24-2023 Alcohol intake Current non-drinker of alcohol (finding) [facility] Start: 06-08-2016 End: 03-24-2023 Tobacco Comment only occasional cigar in college years [facility] Start: 1950 Sex Assigned At Not on file [facility] History of tobacco use Current smoker [facility] Start: 03-15-2022 End: 03-25-2022 Exposure to SARS-CoV-2 (event) Not sure [facility] Start: 03-25-2022 End: 03-24-2023 History of Social function [facility] Start: 03-25-2022 End: 03-24-2023 Tobacco use panel [facility] National Score (1-10 0), lower number is lower risk 56 [facility] Start: 04-04-2023 End: 04-19-2023 Alcohol intake Ex-drinker (finding) [facility] Clinical Notes 09-28-2021 to 04-19-2023 Luciana Irene RN - 04/19/2023 8:15 AM Sierra Bower MD - 04/19/2023 7:30 AM Sierra Bower MD - 04/19/2023 7:30 AM ESTPatient Maribel Arthur CUSTOMS INVESTIGATOR - 04/04/2023 9:22 AM EST Note Date & Type Note Facility 04-19-2023 Nurse Note Patient received in phase II via cart in left lateral position, eyes closed but open to verbal stimuli, skin warm and dry, respirations regular and unlabored, abdomen soft and non distended, denies pain, nausea or cramping, resting comfortably on left side. documented in this encounter [facility] 04-19-2023 History and physical note UPDATED PROCEDURAL SEDATION HISTORY AND PHYSICAL EXAMINATION SERVICE DATE: 04/19/2023 SERVICE TIME: 7:26 PHYSICAL EXAM MUST BE COMPLETED ON ADMISSION PROCEDURE: colonoscopy, possible bipsies Procedure Indications: history of colo npolyps The History and Physical (completed in the past 30 days) has been reviewed and the patient has been examined. The contents accurately reflect the patient's condition with the following additions or revisions since the H&P was completed. ASA Class: ASA Class:: Patient with mild systemic disease Examination indicates no changes. AIRWAY: Airway Visualization of Uvula: Yes Mouth opening greater than 2 fingerbreadths: Yes Neck Full Range of Motion: Yes LUNGS: Lungs clear to auscultation CARDIAC: Regular rhythm,Regular rate Provisional Diagnosis/Treatment Plan: colonoscoyp, possible biopsies SEDATION GOAL: Moderate This H&P can be found in the Electronic Medical Record SIGNATURE: Sierra Enicso MD PATIENT NAME: Singh Park DATE: April 19, 2023 TIME: 7:38 AM Source Note - Sierra Enciso MD - 04/19/2023 7:30 AM EST HISTORY AND PHYSICAL Singh Park 1950 REFERRING PHYSICIAN: No ref. provider found CHIEF COMPLAINT: Consult (colonoscopy) HPI: The patient is a 72 year old male referred for endoscopy. Singh notes no GI complaints. He last had a colonoscopy in 2017 with findings of tubular adenoma. He denies blood in his stools; denies abdominal pain; denies changes in bowel habits. He notes no colon cancer in his immediate family. PAST MEDICAL HISTORY PAST MEDICAL HISTORY Diagnosis Date Basal cell carcinoma of eye Constipation CPAP (continuous positive airway pressure) dependence Elevated prostate specific antigen (PSA) Essential hypertension, benign Restless leg syndrome Tubular adenoma of colon 06/27/2016 repeat colonoscopy 5 years PAST SURGICAL HISTORY PAST SURGICAL HISTORY Procedure Laterality Date APPENDECTOMY 1958 COLONOSCOPY 2010 benign polyp - [facility] - repeat 5 years COLONOSCOPY 06/27/2016 repeat 5 years - 06/27/2021 MOHS ADDL STAGE Left 1987 REPAIR UMBILICAL HERNIA TONSILLECTOMY AND ADENOIDECTOMY HX CURRENT MEDICATIONS Current Outpatient Medications Medication Sig sertraline (ZOLOFT) 100 mg tablet Take 25 mg by mouth once daily. mv-mn/FA/lycop/[place] 3,6,9 #3 (MEN'S 50+ ADVANCED ORAL) Take 1 tablet by mouth once daily. Lactobacillus acidophilus (PROBIOTIC) 10 billion cell cap Take 1 capsule by mouth once daily. tamsulosin (FLOMAX) 0.4 mg Take 1 capsule by mouth once daily. omeprazole (PRILOSEC) 40 mg capsule once daily. docusate sodium (STOOL SOFTENER ORAL) Take by mouth once daily. cholecalciferol, vitamin D3, (VITAMIN D3 ORAL) Take by mouth once daily. gabapentin (NEURONTIN) 300 mg capsule Take 1,200 mg by mouth daily at bedtime. hydroCHLOROthiazide (HYDRODIURIL, ESIDRIX) 25 mg tablet Take 25 mg by mouth once daily. pravastatin (PRAVACHOL) 20 mg tablet Take 40 mg by mouth once daily. GAS RELIEF, SIMETHICONE, ORAL Take 125 mg by mouth once daily. OTC PRODUCT Take by mouth once daily. Ageless Male sildenafil (VIAGRA) 100 mg tablet 1 tablet 30 min prior to intercourse, on empty stomach and with sexual stimulation immediately following. multivit-min/FA/lycopen/lutein (MEN 50 PLUS MULTIVITAMIN ORAL) Take by mouth once daily. Zinc 50 mg tab Take by mouth once daily. ascorbic acid (VITAMIN C ORAL) Take 1,000 mg by mouth once daily. Takes two tablets to equal 2000 MG Golersu-Nmdbvmyxiztgv-Zkbvejhq (EXCEDRIN MIGRAINE) 250-250-65 mg per tablet Take 1 tablet by mouth every 6 hours as needed for pain. aspirin, enteric coated (ASPIRIN, ENTERIC COATED) 81 mg EC tablet Take 81 mg by mouth once daily. (Patient not taking: Reported on 03/25/2022) linaclotide (LINZESS) 145 mcg capsule Take 1 capsule by mouth once daily. (Patient not taking: Reported on 03/25/2022) sod picosulf-mag ox-citric ac (PREPOPIK) 10 mg-3.5 gram-12 gram pwpk Follow the instructions provided by your doctor. (Patient not taking: Reported on 03/25/2022) ELIDEL 1 % TOPICAL CREAM Apply to affected areas rosacea on face QD--BID as tolerated and taper as able when clear. (Patient not taking: Reported on 03/25/2022) ELIDEL 1 % TOPICAL CREAM Apply to affected areas rosacea on face QD--BID as tolerated and taper off as able when clear (Patient not taking: Reported on 03/25/2022) No current facility-administered medications for this visit. ALLERGIES: Penicillins and Sulfa (Sulfonamide Antibiotics) PERSONAL HISTORY: SOCIAL HISTORY Social History Tobacco Use Smoking status: Former Smokeless tobacco: Never Tobacco comments: only occasional cigar in college years Vaping Use Vaping Use: Never used Substance Use Topics Alcohol use: No Drug use: No FAMILY HISTORY FAMILY HISTORY Problem Relation Age of Onset Cancer Mother Skin Cancer Father Heart Failure Father The review of systems data was entered by the nurse and reviewed by al Nursing Notes: Nelia Thomson LPN 03/24/2023 8:34 AM Signed REVIEW OF SYSTEMS: General: The patient NOTES fatigue, denies weight loss, denies weight gain, denies feeling hot, and denies feelings of cold. Eyes: The patient denies glaucoma, denies eye injury/surgery, does not wear glasses or contacts. Ear/Nose/Throat: The patient denies allergies, denies hayfever, denies ear infections, and denies bloody noses. Cardiovascular: The patient denies chest pain, denies heart disease, NOTES high blood pressure,denies cardiac stent, denies prior heart attack, denies irregular heart beat, denies high cholesterol, denies poor circulation, denies heart failure, other cardiac issues, denies claudication, denies cold feet, denies peripheral arterial stent. Respiratory: The patient denies tuberculosis, denies pneumonia, denies frequent cough, denies pulmonary embolism, denies shortness of breath, and denies coughing up blood. Gastrointestinal: The patient denies difficulty swallowing, denies acid reflux, denies ulcers, denies vomiting, denies jaundice/hepatitis, denies gallbladder problems, denies black or tarry stools, NOTES hemorrhoids, denies bleeding from rectum, denies diverticulitis, denies constipation, denies diarrhea, denies loss of stool control, and denies hernias. Kidney/Bladder: The patient denies kidney stones, denies urine infections, and denies bloody urine. Skin: The patient NOTES a history of skin cancer, denies bleeding/changing moles, and denies a history of skin rash. Neurologic: The patient denies a history of epilepsy/convulsions, denies headaches, denies head/spinal injuries, and denies stroke/TIA. Psychiatric: The patient denies psychiatric medications, NOTES depression, and denies voices, denies substance abuse. Endocrine: The patient denies thyroid disorders, denies diabetes, and denies hormonal problems. Hematologic: The patient denies a history of bruising, denies bleeding, and denies anemia, denies blood clots. Infections: The patient denies a history of measles and mumps, denies rheumatic fever, and denies sexually transmitted diseases. Musculoskeletal: The patient NOTES back pain/injury, NOTES back problems, denies sciatica, denies knee/foot trouble, denies arthritis, or denies gout. When was patient's last Mammogram screening? N/A Last Colonoscopy: 2016 Nelia Thomson LPN PHYSICAL EXAMINATION: General: The patient is 72 year old male, well nourished, well hydrated in no acute distress. The patient is oriented to time, place, and person. VITALS: Blood pressure 130/82, pulse 79, temperature 36.5 C (97.7 F), height 177.8 cm (5' 10 ), weight 106.2 kg (234 lb 3.2 oz), SpO2 95 %. Body mass index is 33.6 kg/m . Head: Normal cephalic, atraumatic Eyes: pupils are equally round, sclera are clear/anicteric Neck is supple with no tracheal deviation Cardiac: regular Respiratory: Normal respiratory excursion and pattern. Abdominal exam: benign Extremities: no clubbing, cyanosis or edema. Neuro: non focal Psych: normal mood Assessment IMPRESSION: history of colon polyp PLAN: I have discussed the above with the patient. I have offered colonoscopy , possible biopsies I have explained the procedure to the patient. I have counseled the patient as to the risks of the procedure, including but not limited to: infection, bleeding, injury to any intrabdominal organs such as liver/spleen, perforation of the GI tract, inability to complete the procedure, complications of anesthesia, etc. - the patient understands. The patient wishes to proceed. I have answered all questions to the patient s satisfaction and the patient has no further questions. Sierra Enciso MD HISTORY AND PHYSICAL Singh Park 1950 REFERRING PHYSICIAN: No ref. provider found CHIEF COMPLAINT: Consult (colonoscopy) HPI: The patient is a 72 year old male referred for endoscopy. Singh notes no GI complaints. He last had a colonoscopy in 2016 with findings of tubular adenoma. He denies blood in his stools; denies abdominal pain; denies changes in bowel habits. He notes no colon cancer in his immediate family. PAST MEDICAL HISTORY PAST MEDICAL HISTORY Diagnosis Date Basal cell carcinoma of eye Constipation CPAP (continuous positive airway pressure) dependence Elevated prostate specific antigen (PSA) Essential hypertension, benign Restless leg syndrome Tubular adenoma of colon 06/27/2016 repeat colonoscopy 5 years PAST SURGICAL HISTORY PAST SURGICAL HISTORY Procedure Laterality Date APPENDECTOMY 1958 COLONOSCOPY 2010 benign polyp - [facility] - repeat 5 years COLONOSCOPY 06/27/2016 repeat 5 years - 06/27/2021 MOHS ADDL STAGE Left 1987 REPAIR UMBILICAL HERNIA TONSILLECTOMY AND ADENOIDECTOMY HX CURRENT MEDICATIONS Current Outpatient Medications Medication Sig sertraline (ZOLOFT) 100 mg tablet Take 25 mg by mouth once daily. mv-mn/FA/lycop/[place] 3,6,9 #3 (MEN'S 50+ ADVANCED ORAL) Take 1 tablet by mouth once daily. Lactobacillus acidophilus (PROBIOTIC) 10 billion cell cap Take 1 capsule by mouth once daily. tamsulosin (FLOMAX) 0.4 mg Take 1 capsule by mouth once daily. omeprazole (PRILOSEC) 40 mg capsule once daily. docusate sodium (STOOL SOFTENER ORAL) Take by mouth once daily. cholecalciferol, vitamin D3, (VITAMIN D3 ORAL) Take by mouth once daily. gabapentin (NEURONTIN) 300 mg capsule Take 1,200 mg by mouth daily at bedtime. hydroCHLOROthiazide (HYDRODIURIL, ESIDRIX) 25 mg tablet Take 25 mg by mouth once daily. pravastatin (PRAVACHOL) 20 mg tablet Take 40 mg by mouth once daily. GAS RELIEF, SIMETHICONE, ORAL Take 125 mg by mouth once daily. OTC PRODUCT Take by mouth once daily. Ageless Male sildenafil (VIAGRA) 100 mg tablet 1 tablet 30 min prior to intercourse, on empty stomach and with sexual stimulation immediately following. multivit-min/FA/lycopen/lutein (MEN 50 PLUS MULTIVITAMIN ORAL) Take by mouth once daily. Zinc 50 mg tab Take by mouth once daily. ascorbic acid (VITAMIN C ORAL) Take 1,000 mg by mouth once daily. Takes two tablets to equal 2000 MG Nuxawjb-Tleyqfeksctit-Kbvlloou (EXCEDRIN MIGRAINE) 250-250-65 mg per tablet Take 1 tablet by mouth every 6 hours as needed for pain. aspirin, enteric coated (ASPIRIN, ENTERIC COATED) 81 mg EC tablet Take 81 mg by mouth once daily. (Patient not taking: Reported on 03/25/2022) linaclotide (LINZESS) 145 mcg capsule Take 1 capsule by mouth once daily. (Patient not taking: Reported on 03/25/2022) sod picosulf-mag ox-citric ac (PREPOPIK) 10 mg-3.5 gram-12 gram pwpk Follow the instructions provided by your doctor. (Patient not taking: Reported on 03/25/2022) ELIDEL 1 % TOPICAL CREAM Apply to affected areas rosacea on face QD--BID as tolerated and taper as able when clear. (Patient not taking: Reported on 03/25/2022) ELIDEL 1 % TOPICAL CREAM Apply to affected areas rosacea on face QD--BID as tolerated and taper off as able when clear (Patient not taking: Reported on 03/25/2022) No current facility-administered medications for this visit. ALLERGIES: Penicillins and Sulfa (Sulfonamide Antibiotics) PERSONAL HISTORY: SOCIAL HISTORY Social History Tobacco Use Smoking status: Former Smokeless tobacco: Never Tobacco comments: only occasional cigar in college years Vaping Use Vaping Use: Never used Substance Use Topics Alcohol use: No Drug use: No FAMILY HISTORY FAMILY HISTORY Problem Relation Age of Onset Cancer Mother Skin Cancer Father Heart Failure Father The review of systems data was entered by the nurse and reviewed by me Nursing Notes: Nelia Thomson LPN 03/24/2023 8:34 AM Signed REVIEW OF SYSTEMS: General: The patient NOTES fatigue, denies weight loss, denies weight gain, denies feeling hot, and denies feelings of cold. Eyes: The patient denies glaucoma, denies eye injury/surgery, does not wear glasses or contacts. Ear/Nose/Throat: The patient denies allergies, denies hayfever, denies ear infections, and denies bloody noses. Cardiovascular: The patient denies chest pain, denies heart disease, NOTES high blood pressure,denies cardiac stent, denies prior heart attack, denies irregular heart beat, denies high cholesterol, denies poor circulation, denies heart failure, other cardiac issues, denies claudication, denies cold feet, denies peripheral arterial stent. Respiratory: The patient denies tuberculosis, denies pneumonia, denies frequent cough, denies pulmonary embolism, denies shortness of breath, and denies coughing up blood. Gastrointestinal: The patient denies difficulty swallowing, denies acid reflux, denies ulcers, denies vomiting, denies jaundice/hepatitis, denies gallbladder problems, denies black or tarry stools, NOTES hemorrhoids, denies bleeding from rectum, denies diverticulitis, denies constipation, denies diarrhea, denies loss of stool control, and denies hernias. Kidney/Bladder: The patient denies kidney stones, denies urine infections, and denies bloody urine. Skin: The patient NOTES a history of skin cancer, denies bleeding/changing moles, and denies a history of skin rash. Neurologic: The patient denies a history of epilepsy/convulsions, denies headaches, denies head/spinal injuries, and denies stroke/TIA. Psychiatric: The patient denies psychiatric medications, NOTES depression, and denies voices, denies substance abuse. Endocrine: The patient denies thyroid disorders, denies diabetes, and denies hormonal problems. Hematologic: The patient denies a history of bruising, denies bleeding, and denies anemia, denies blood clots. Infections: The patient denies a history of measles and mumps, denies rheumatic fever, and denies sexually transmitted diseases. Musculoskeletal: The patient NOTES back pain/injury, NOTES back problems, denies sciatica, denies knee/foot trouble, denies arthritis, or denies gout. When was patient's last Mammogram screening? N/A Last Colonoscopy: 2016 Nelia Thomson LPN PHYSICAL EXAMINATION: General: The patient is 72 year old male, well nourished, well hydrated in no acute distress. The patient is oriented to time, place, and person. VITALS: Blood pressure 130/82, pulse 79, temperature 36.5 C (97.7 F), height 177.8 cm (5' 10 ), weight 106.2 kg (234 lb 3.2 oz), SpO2 95 %. Body mass index is 33.6 kg/m . Head: Normal cephalic, atraumatic Eyes: pupils are equally round, sclera are clear/anicteric Neck is supple with no tracheal deviation Cardiac: regular Respiratory: Normal respiratory excursion and pattern. Abdominal exam: benign Extremities: no clubbing, cyanosis or edema. Neuro: non focal Psych: normal mood Assessment IMPRESSION: history of colon polyp PLAN: I have discussed the above with the patient. I have offered colonoscopy , possible biopsies I have explained the procedure to the patient. I have counseled the patient as to the risks of the procedure, including but not limited to: infection, bleeding, injury to any intrabdominal organs such as liver/spleen, perforation of the GI tract, inability to complete the procedure, complications of anesthesia, etc. - the patient understands. The patient wishes to proceed. I have answered all questions to the patient s satisfaction and the patient has no further questions. Sierra Enciso MD documented in this encounter [facility] 04-04-2023 Note HNO ID: [id number] Author: Will Dawson PA-C Service: ? Author Type: Physician Shipping And Receiving Material Handler Type: Progress Notes Filed: 04/04/2023 10:06 AM Note Text: [facility] PATIENT CLIN[facility] NOTE Some elements copied from his previous note, which have been updated where appropriate, and all reflect current medical decision making from date of this visit. NAME: Singh Park CHIEF COMPLAINT: BPH and Impotence HISTORY OF PRESENT ILLNESS: Singh Park is a 72 year old Male with BPH and Impotence follow-up and over the last year has been doing well The patient reports no LUTS and doing well on medications Refilled Flomax and Viagra today LUTS: Done Other symptoms: ED - yes LABS: No results found for: HCT PSA (ng/mL) Date Value 03/27/2023 2.82 03/22/2022 2.14 09/23/2021 3.60 No results found for: TESTOST MEDICATIONS: Lactobacillus acidophilus (PROBIOTIC) 10 billion cell cap Take 1 capsule by mouth once daily. GAS RELIEF, SIMETHICONE, ORAL Take 125 mg by mouth once daily. OTC PRODUCT Take by mouth once daily. Ageless Male tamsulosin (FLOMAX) 0.4 mg Take 1 capsule by mouth once daily. sildenafil (VIAGRA) 100 mg tablet 1 tablet 30 min prior to intercourse, on empty stomach and with sexual stimulation immediately following. omeprazole (PRILOSEC) 40 mg capsule once daily. multivit-min/FA/lycopen/lutein (MEN 50 PLUS MULTIVITAMIN ORAL) Take by mouth once daily. docusate sodium (STOOL SOFTENER ORAL) Take by mouth once daily. cholecalciferol, vitamin D3, (VITAMIN D3 ORAL) Take by mouth once daily. Pcooich-Cgodtyhtaldxv-Segiktcz (EXCEDRIN MIGRAINE) 250-250-65 mg per tablet Take 1 tablet by mouth every 6 hours as needed for pain. gabapentin (NEURONTIN) 300 mg capsule Take 1,200 mg by mouth daily at bedtime. hydroCHLOROthiazide (HYDRODIURIL, ESIDRIX) 25 mg tablet Take 25 mg by mouth once daily. pravastatin (PRAVACHOL) 20 mg tablet Take 40 mg by mouth once daily. sertraline (ZOLOFT) 100 mg tablet Take 25 mg by mouth once daily. mv-mn/FA/lycop/[place] 3,6,9 #3 (MEN'S 50+ ADVANCED ORAL) Take 1 tablet by mouth once daily. (Patient not taking: Reported on 04/04/2023) Zinc 50 mg tab Take by mouth once daily. (Patient not taking: Reported on 04/04/2023) ascorbic acid (VITAMIN C ORAL) Take 1,000 mg by mouth once daily. Takes two tablets to equal 2000 MG (Patient not taking: Reported on 04/04/2023) aspirin, enteric coated (ASPIRIN, ENTERIC COATED) 81 mg EC tablet Take 81 mg by mouth once daily. (Patient not taking: Reported on 03/25/2022) linaclotide (LINZESS) 145 mcg capsule Take 1 capsule by mouth once daily. (Patient not taking: Reported on 03/25/2022) sod picosulf-mag ox-citric ac (PREPOPIK) 10 mg-3.5 gram-12 gram pwpk Follow the instructions provided by your doctor. (Patient not taking: Reported on 03/25/2022) ELIDEL 1 % TOPICAL CREAM Apply to affected areas rosacea on face QD--BID as tolerated and taper as able when clear. (Patient not taking: Reported on 03/25/2022) ELIDEL 1 % TOPICAL CREAM Apply to affected areas rosacea on face QD--BID as tolerated and taper off as able when clear (Patient not taking: Reported on 03/25/2022) PAST MEDICAL HISTORY: PAST MEDICAL HISTORY Diagnosis Date Basal cell carcinoma of eye Constipation CPAP (continuous positive airway pressure) dependence Elevated prostate specific antigen (PSA) Essential hypertension, benign Impotence of organic origin Restless leg syndrome Tubular adenoma of colon 06/27/2016 repeat colonoscopy 5 years PAST SURGICAL HISTORY: PAST SURGICAL HISTORY Procedure Laterality Date APPENDECTOMY 1958 COLONOSCOPY 2010 benign polyp - [facility] - repeat 5 years COLONOSCOPY 06/27/2016 repeat 5 years - 06/27/2021 MOHS ADDL STAGE Left 1987 REPAIR UMBILICAL HERNIA TONSILLECTOMY AND ADENOIDECTOMY HX REVIEW OF SYSTEMS: GENERAL: No fever, chills, weight loss, or fatigue. All other systems reviewed and are negative PHYSICAL EXAMINATION: Blood pressure 140/86, pulse 80, temperature 36.9 ?C (98.5 ?F), temperature source Temporal, resp. rate 14, height 177.8 cm (5' 10 ), weight 105 kg (231 lb 6.4 oz), SpO2 95%. GENERAL: WNL nutrition, no deformities, healthy appearing GENITOURINARY: MALE EXAM: Rectal Exam: Prostate: size (35 grams), symmetrical, nontender, w/o nodules. PROBLEM LIST REVIEW: Yes LABS: Results for orders placed or performed in visit on 04/04/23 UA DIP, URINE (POC) Result Value Ref Range GLUCOSE UA (POCT) Negative Negative mg/dL BILIRUBIN UA (POCT) Negative Negative KETONE UA (POCT) Negative Negative mg/dL SPECIFIC GRAVITY UA (POCT) >=1.030 1.005 - 1.030 HEMOGLOBIN/BLOOD UA (POCT) Negative Negative PH UA (POCT) 6.0 4.5 - 8.0 PROTEIN UA (POCT) Negative Negative mg/dL UROBILINOGEN UA (POCT) 0.2 Normal E.U./dL NITRITE UA (POCT) Negative Negative LEUKOCYTES UA (POCT) (more content not included)... [facility] 04-04-2023 Note HNO ID: [id number] Author: Maribel Murphy LPN Service: ? Author Type: ? Type: Progress Notes Filed: 04/04/2023 10:06 AM Note Text: Verified name and date of . CC Post Void Residual HPI: Singh Park is a 72 year old male. The patient is here now for an appointment with FLORI Hawkins, LAUREN, ERIK. Procedure: Explained procedure to patient and verbalizes understanding. Performed a PVR. Patient urinated and instructed to empty bladder as much as possible just prior to having PVR done using bladder ultrasound scanner. Results of scan: 0 mL The patient tolerated the procedure well. Plan: Appointment with Will. [facility] 04-04-2023 Instructions Will Dawson PA-C - 04/04/2023 9:42 AM EST > 1 year Appt w/ B. FLORI Dawson, COLLETTE AGUILAR with PSA prior documented in this encounter [facility] 04-04-2023 History of Presen t illness Narrative Images from the original note were not included. [facility] EST[facility] PATIENT CLINIC NOTE Some elements copied from his previous note, which have been updated where appropriate, and all reflect current medical decision making from date of this visit. NAME: Singh Park CHIEF COMPLAINT: BPH and Impotence HISTORY OF PRESENT ILLNESS: Singh Park is a 72 year old Male with BPH and Impotence follow-up and over the last year has been doing well The patient reports no LUTS and doing well on medications Refilled Flomax and Viagra today LUTS: Done Other symptoms: ED - yes LABS: No results found for: HCT PSA (ng/mL) Date Value 03/27/2023 2.82 03/22/2022 2.14 09/23/2021 3.60 No results found for: TESTOST MEDICATIONS: Lactobacillus acidophilus (PROBIOTIC) 10 billion cell cap Take 1 capsule by mouth once daily. GAS RELIEF, SIMETHICONE, ORAL Take 125 mg by mouth once daily. OTC PRODUCT Take by mouth once daily. Ageless Male tamsulosin (FLOMAX) 0.4 mg Take 1 capsule by mouth once daily. sildenafil (VIAGRA) 100 mg tablet 1 tablet 30 min prior to intercourse, on empty stomach and with sexual stimulation immediately following. omeprazole (PRILOSEC) 40 mg capsule once daily. multivit-min/FA/lycopen/lutein (MEN 50 PLUS MULTIVITAMIN ORAL) Take by mouth once daily. docusate sodium (STOOL SOFTENER ORAL) Take by mouth once daily. cholecalciferol, vitamin D3, (VITAMIN D3 ORAL) Take by mouth once daily. Vjpvjnq-Twvfzxiryjkvr-Xsenzzdp (EXCEDRIN MIGRAINE) 250-250-65 mg per tablet Take 1 tablet by mouth every 6 hours as needed for pain. gabapentin (NEURONTIN) 300 mg capsule Take 1,200 mg by mouth daily at bedtime. hydroCHLOROthiazide (HYDRODIURIL, ESIDRIX) 25 mg tablet Take 25 mg by mouth once daily. pravastatin (PRAVACHOL) 20 mg tablet Take 40 mg by mouth once daily. sertraline (ZOLOFT) 100 mg tablet Take 25 mg by mouth once daily. mv-mn/FA/lycop/[place] 3,6,9 #3 (MEN'S 50+ ADVANCED ORAL) Take 1 tablet by mouth once daily. (Patient not taking: Reported on 04/04/2023) Zinc 50 mg tab Take by mouth once daily. (Patient not taking: Reported on 04/04/2023) ascorbic acid (VITAMIN C ORAL) Take 1,000 mg by mouth once daily. Takes two tablets to equal 2000 MG (Patient not taking: Reported on 04/04/2023) aspirin, enteric coated (ASPIRIN, ENTERIC COATED) 81 mg EC tablet Take 81 mg by mouth once daily. (Patient not taking: Reported on 03/25/2022) linaclotide (LINZESS) 145 mcg capsule Take 1 capsule by mouth once daily. (Patient not taking: Reported on 03/25/2022) sod picosulf-mag ox-citric ac (PREPOPIK) 10 mg-3.5 gram-12 gram pwpk Follow the instructions provided by your doctor. (Patient not taking: Reported on 03/25/2022) ELIDEL 1 % TOPICAL CREAM Apply to affected areas rosacea on face QD--BID as tolerated and taper as able when clear. (Patient not taking: Reported on 03/25/2022) ELIDEL 1 % TOPICAL CREAM Apply to affected areas rosacea on face QD--BID as tolerated and taper off as able when clear (Patient not taking: Reported on 03/25/2022) PAST MEDICAL HISTORY: PAST MEDICAL HISTORY Diagnosis Date Basal cell carcinoma of eye Constipation CPAP (continuous positive airway pressure) dependence Elevated prostate specific antigen (PSA) Essential hypertension, benign Impotence of organic origin Restless leg syndrome Tubular adenoma of colon 06/27/2016 repeat colonoscopy 5 years PAST SURGICAL HISTORY: PAST SURGICAL HISTORY Procedure Laterality Date APPENDECTOMY 1958 COLONOSCOPY 2010 benign polyp - [facility] - repeat 5 years COLONOSCOPY 06/27/2016 repeat 5 years - 06/27/2021 MOHS ADDL STAGE Left 1987 REPAIR UMBILICAL HERNIA TONSILLECTOMY AND ADENOIDECTOMY HX REVIEW OF SYSTEMS: GENERAL: No fever, chills, weight loss, or fatigue. All other systems reviewed and are negative PHYSICAL EXAMINATION: Blood pressure 140/86, pulse 80, temperature 36.9 C (98.5 F), temperature source Temporal, resp. rate 14, height 177.8 cm (5' 10 ), weight 105 kg (231 lb 6.4 oz), SpO2 95%. GENERAL: WNL nutrition, no deformities, healthy appearing GENITOURINARY: MALE EXAM: Rectal Exam: Prostate: size (35 grams), symmetrical, nontender, w/o nodules. PROBLEM LIST REVIEW: Yes LABS: Results for orders placed or performed in visit on 04/04/23 UA DIP, URINE (POC) Result Value Ref Range GLUCOSE UA (POCT) Negative Negative mg/dL BILIRUBIN UA (POCT) Negative Negative KETONE UA (POCT) Negative Negative mg/dL SPECIFIC GRAVITY UA (POCT) >=1.030 1.005 - 1.030 HEMOGLOBIN/BLOOD UA (POCT) Negative Negative PH UA (POCT) 6.0 4.5 - 8.0 PROTEIN UA (POCT) Negative Negative mg/dL UROBILINOGEN UA (POCT) 0.2 Normal E.U./dL NITRITE UA (POCT) Negative Negative LEUKOCYTES UA (POCT) Negative Negative COLOR UA (POCT) Dark yellow CLARITY UA (POCT) Clear PROCEDURES: PVR: 0 ml IMAGING: IMPRESSION/PLAN: 71 year old male with . 1. Elevated prostate specific antigen (PSA) - ICD9: 790.93, ICD10: R97.20 (primary diagnosis) 2. Impotence of organic origin - ICD9: 607.84, ICD10: N52.9 PSA- 2.82 > Refilled Viagra 100 mg > Refilled Flomax > 1 year Appt w/ B. FLORI Dawson MT, PA-C with PSA prior FLORI Hawkins MT, PA-C Verified name and date of . CC Post Void Residual HPI: Singh Park is a 72 year old male. The patient is here now for an appointment with Will E. Dawson, MPAS, MT, PA-COV. Procedure: Explained procedure to patient and verbalizes understanding. Performed a PVR. Patient urinated and instructed to empty bladder as much as possible just prior to having PVR done using bladder ultrasound scanner. Results of scan: 0 mL The patient tolerated the procedure well. Plan: Appointment with Will. documented in this encounter [facility] 03-24-2023 Note HNO ID: [id number] Author: Sierra Enciso MD Service: ? Author Type: Physician Type: Progress Notes Filed: 03/24/2023 1:30 PM Note Text: HISTORY AND PHYSICAL Singh Park 1950 REFERRING PHYSICIAN: No ref. provider found CHIEF COMPLAINT: Consult (colonoscopy) HPI: The patient is a 72 year old male referred for endoscopy. Singh notes no GI complaints. He last had a colonoscopy in 2016 with findings of tubular adenoma. He denies blood in his stools; denies abdominal pain; denies changes in bowel habits. He notes no colon cancer in his immediate family. PAST MEDICAL HISTORY Diagnosis Date Basal cell carcinoma of eye Constipation CPAP (continuous positive airway pressure) dependence Elevated prostate specific antigen (PSA) Essential hypertension, benign Restless leg syndrome Tubular adenoma of colon 06/27/2016 repeat colonoscopy 5 years PAST SURGICAL HISTORY Procedure Laterality Date APPENDECTOMY 1958 COLONOSCOPY 2010 benign polyp - [facility] - repeat 5 years COLONOSCOPY 06/27/2016 repeat 5 years - 06/27/2021 MOHS ADDL STAGE Left 1987 REPAIR UMBILICAL HERNIA TONSILLECTOMY AND ADENOIDECTOMY HX Current Outpatient Medications Medication Sig sertraline (ZOLOFT) 100 mg tablet Take 25 mg by mouth once daily. mv-mn/FA/lycop/[place] 3,6,9 #3 (MEN'S 50+ ADVANCED ORAL) Take 1 tablet by mouth once daily. Lactobacillus acidophilus (PROBIOTIC) 10 billion cell cap Take 1 capsule by mouth once daily. tamsulosin (FLOMAX) 0.4 mg Take 1 capsule by mouth once daily. omeprazole (PRILOSEC) 40 mg capsule once daily. docusate sodium (STOOL SOFTENER ORAL) Take by mouth once daily. cholecalciferol, vitamin D3, (VITAMIN D3 ORAL) Take by mouth once daily. gabapentin (NEURONTIN) 300 mg capsule Take 1,200 mg by mouth daily at bedtime. hydroCHLOROthiazide (HYDRODIURIL, ESIDRIX) 25 mg tablet Take 25 mg by mouth once daily. pravastatin (PRAVACHOL) 20 mg tablet Take 40 mg by mouth once daily. GAS RELIEF, SIMETHICONE, ORAL Take 125 mg by mouth once daily. OTC PRODUCT Take by mouth once daily. Ageless Male sildenafil (VIAGRA) 100 mg tablet 1 tablet 30 min prior to intercourse, on empty stomach and with sexual stimulation immediately following. multivit-min/FA/lycopen/lutein (MEN 50 PLUS MULTIVITAMIN ORAL) Take by mouth once daily. Zinc 50 mg tab Take by mouth once daily. ascorbic acid (VITAMIN C ORAL) Take 1,000 mg by mouth once daily. Takes two tablets to equal 2000 MG Mphkuaq-Ngycprjunqyhb-Rnobrjjo (EXCEDRIN MIGRAINE) 250-250-65 mg per tablet Take 1 tablet by mouth every 6 hours as needed for pain. aspirin, enteric coated (ASPIRIN, ENTERIC COATED) 81 mg EC tablet Take 81 mg by mouth once daily. (Patient not taking: Reported on 03/25/2022) linaclotide (LINZESS) 145 mcg capsule Take 1 capsule by mouth once daily. (Patient not taking: Reported on 03/25/2022) sod picosulf-mag ox-citric ac (PREPOPIK) 10 mg-3.5 gram-12 gram pwpk Follow the instructions provided by your doctor. (Patient not taking: Reported on 03/25/2022) ELIDEL 1 % TOPICAL CREAM Apply to affected areas rosacea on face QD--BID as tolerated and taper as able when clear. (Patient not taking: Reported on 03/25/2022) ELIDEL 1 % TOPICAL CREAM Apply to affected areas rosacea on face QD--BID as tolerated and taper off as able when clear (Patient not taking: Reported on 03/25/2022) No current facility-administered medications for this visit. ALLERGIES: Penicillins and Sulfa (Sulfonamide Antibiotics) PERSONAL HISTORY: Social History Tobacco Use Smoking status: Former Smokeless tobacco: Never Tobacco comments: only occasional cigar in college years Vaping Use Vaping Use: Never used Substance Use Topics Alcohol use: No Drug use: No FAMILY HISTORY Problem Relation Age of Onset Cancer Mother Skin Cancer Father Heart Failure Father The review of systems data was entered by the nurse and reviewed by me Nursing Notes: Nelia Thomson, CUSTOMS INVESTIGATOR 03/24/2023 8:34 AM Signed REVIEW OF SYSTEMS: General: The patient NOTES fatigue, denies weight loss, denies weight gain, denies feeling hot, and denies feelings of cold. Eyes: The patient denies glaucoma, denies eye injury/surgery, does not wear glasses or contacts. Ear/Nose/Throat: The patient denies allergies, denies hayfever, denies ear infections, and denies bloody noses. Cardiovascular: The patient denies chest pain, denies heart disease, NOTES high blood pressure,denies cardiac stent, denies prior heart attack, denies irregular heart beat, denies high cholesterol, denies poor circulation, denies heart failure, other cardiac issues, denies claudication, denies cold feet, denies peripheral arterial stent. Respiratory: The patient denies tuberculosis, denies pneumonia, denies frequent cough, denies pulmonary embolism, denies shortness of breath, and denies coughing up blood. Gastrointestinal: The patient denies diff (more content not included)... [facility] 03-24-2023 Instructions Sierra Enciso MD - 03/24/2023 10:05 AM EST Images from the original note were not included. Bowel Preparation Instructions for: Miralax-Gatorade Preparations IF YOU DO NOT FOLLOW THESE DIRECTIONS, YOUR COLONOSCOPY WILL BE CANCELLED. Pop Instructions: Your bowel must be empty so that your doctor can clearly view your colon. Follow all of the instructions in this handout EXACTLY as they are written. Do NOT eat any solid food the ENTIRE day before your colonoscopy. Buy your bowel preparation at least 5 days before your colonoscopy. Four (4) Dulcolax laxative tablets containing 5mg of bisacodyl each (NOT Dulcolax stool softener) One (1) 8.3oz. bottle Miralax (238 grams) or generic equivalent 2 x 32oz. Bottles of Gatorade (NOT RED) Diabetic Patients: Use G2 (Gatorade 2) TRANSPORTATION on the Day of Your Exam A responsible adult MUST be present with you at Check In prior to your colonoscopy and REMAIN in the endoscopy area until you are discharged. You are NOT ALLOWED to drive, take a taxi or bus, or leave the Endoscopy Center ALONE. If you do not have a responsible driver/sales workers (family member or friend) with you to take you home, your exam cannot be done with sedation and will be cancelled. Please bring a list of all of your current medications, including any Ueld-gve-Cnqktlc medications with you. Medications If you take insulin, diabetic medications or blood thinners such as Coumadin (warfarin), Plavix (clopidogrel), Ticlid (ticlopidine hydrochloride), Agrylin (anagrelide), Xarelto (Rivaroxaban), Pradaxa (Dabigatran), Eliquis (Apixaban), and Effient (Prasugrel). You MUST call the doctors who orders those medicines for instructions on altering the dosage before your colonoscopy. All other medications should be taken the day of the exam with a sip of water including ASPIRIN. Five (5) Days Before Your Colonoscopy Do NOT take medicines that stop diarrhea - such as Imodium, Kaopectate, or Pepto Bismol. Do NOT take fiber supplements - such as Metamucil, Citrucel, or Perdiem. Do NOT take products that contain iron - such as multi-vitamins (the label lists what is in the products). Three (3) Days Before Your Colonoscopy Do NOT eat high-fiber foods - such as popcorn, beans, seeds (flax, sunflower, quinoa), multigrain bread, nuts, salad/vegetables, or fresh and dried fruit. 1 Bowel Preparation Instructions for: Miralax-Gatorade Preparations One (1) Day Before Your Colonoscopy Only drink clear liquids the ENTIRE DAY before your colonoscopy. Do NOT eat any solid foods. Drink at least 8 ounces of clear liquids every hour after waking up. The clear liquids you can drink include: Clear Liquid (NO RED LIQUIDS) DO NOT DRINK Gatorade, Pedialyte or Powerade Clear broth or bouillon Coffee or tea (no milk or non-dairy creamer) Carbonated and non-carbonated soft drinks Pierce-Aid or other fruit flavored drinks Strained fruit juices (no pulp) Jell-O, popsicles, hard candy Water Alcohol Milk or non-dairy creamers Noodles or vegetables in soup Juice with pulp Liquid you cannot see through Do not use tobacco/vaping products Mix 1/2 of Miralax bottle (119 grams) in each 32 ounces of Gatorade bottle until dissolved. Keep cool in the refrigerator. DO NOT ADD ICE. The bowel preparation solution will be consumed in two parts. Part 1 5:00 PM - Evening before your colonoscopy Take 4 Dulcolax tablets. 6 PM - Evening before your colonoscopy Drink 32 oz. of the mixed solution. Drink an 8 oz. glass of bowel preparation every 15 minutes for a total of 4 glasses. Fifteen (15) minutes later, drink an 8 oz. glass of of clear liquids every 15 minutes for a total of 2 glasses. You may continue to drink clear liquids till midnight. Part 2 On the day of your colonoscopy you may drink clear liquids up to (three) 3 hours prior to procedure. 4 1/2 hours before your colonoscopy Take another 32 oz. bottle of mixed solution. Drink an 8 oz. glass of bowel prep every 15 minutes for a total of 4 glasses. Fifteen (15) minutes later, drink an 8 oz. glass of clear liquids every 15 minutes for a total of 2 glasses. You may continue to drink clear liquids up to (three) 3 hours before your exam. 2 03/2019 documented in this encounter [facility] 03-24-2023 History of Presen t illness Narrative HISTORY AND PHYSICAL Singh Park 1950 REFERRING PHYSICIAN: No ref. provider found CHIEF COMPLAINT: Consult (colonoscopy) HPI: The patient is a 72 year old male referred for endoscopy. Singh notes no GI complaints. He last had a colonoscopy in 2016 with findings of tubular adenoma. He denies blood in his stools; denies abdominal pain; denies changes in bowel habits. He notes no colon cancer in his immediate family. PAST MEDICAL HISTORY Diagnosis Date Basal cell carcinoma of eye Constipation CPAP (continuous positive airway pressure) dependence Elevated prostate specific antigen (PSA) Essential hypertension, benign Restless leg syndrome Tubular adenoma of colon 06/27/2016 repeat colonoscopy 5 years PAST SURGICAL HISTORY Procedure Laterality Date APPENDECTOMY 1958 COLONOSCOPY 2010 benign polyp - [facility] - repeat 5 years COLONOSCOPY 06/27/2016 repeat 5 years - 06/27/2021 MOHS ADDL STAGE Left 1986 REPAIR UMBILICAL HERNIA TONSILLECTOMY AND ADENOIDECTOMY HX Current Outpatient Medications Medication Sig sertraline (ZOLOFT) 100 mg tablet Take 25 mg by mouth once daily. mv-mn/FA/lycop/[place] 3,6,9 #3 (MEN'S 50+ ADVANCED ORAL) Take 1 tablet by mouth once daily. Lactobacillus acidophilus (PROBIOTIC) 10 billion cell cap Take 1 capsule by mouth once daily. tamsulosin (FLOMAX) 0.4 mg Take 1 capsule by mouth once daily. omeprazole (PRILOSEC) 40 mg capsule once daily. docusate sodium (STOOL SOFTENER ORAL) Take by mouth once daily. cholecalciferol, vitamin D3, (VITAMIN D3 ORAL) Take by mouth once daily. gabapentin (NEURONTIN) 300 mg capsule Take 1,200 mg by mouth daily at bedtime. hydroCHLOROthiazide (HYDRODIURIL, ESIDRIX) 25 mg tablet Take 25 mg by mouth once daily. pravastatin (PRAVACHOL) 20 mg tablet Take 40 mg by mouth once daily. GAS RELIEF, SIMETHICONE, ORAL Take 125 mg by mouth once daily. OTC PRODUCT Take by mouth once daily. Ageless Male sildenafil (VIAGRA) 100 mg tablet 1 tablet 30 min prior to intercourse, on empty stomach and with sexual stimulation immediately following. multivit-min/FA/lycopen/lutein (MEN 50 PLUS MULTIVITAMIN ORAL) Take by mouth once daily. Zinc 50 mg tab Take by mouth once daily. ascorbic acid (VITAMIN C ORAL) Take 1,000 mg by mouth once daily. Takes two tablets to equal 2000 MG Idipoix-Kimyaahfudzpb-Lhxfmmzr (EXCEDRIN MIGRAINE) 250-250-65 mg per tablet Take 1 tablet by mouth every 6 hours as needed for pain. aspirin, enteric coated (ASPIRIN, ENTERIC COATED) 81 mg EC tablet Take 81 mg by mouth once daily. (Patient not taking: Reported on 03/25/2022) linaclotide (LINZESS) 145 mcg capsule Take 1 capsule by mouth once daily. (Patient not taking: Reported on 03/25/2022) sod picosulf-mag ox-citric ac (PREPOPIK) 10 mg-3.5 gram-12 gram pwpk Follow the instructions provided by your doctor. (Patient not taking: Reported on 03/25/2022) ELIDEL 1 % TOPICAL CREAM Apply to affected areas rosacea on face QD--BID as tolerated and taper as able when clear. (Patient not taking: Reported on 03/25/2022) ELIDEL 1 % TOPICAL CREAM Apply to affected areas rosacea on face QD--BID as tolerated and taper off as able when clear (Patient not taking: Reported on 03/25/2022) No current facility-administered medications for this visit. ALLERGIES: Penicillins and Sulfa (Sulfonamide Antibiotics) PERSONAL HISTORY: Social History Tobacco Use Smoking status: Former Smokeless tobacco: Never Tobacco comments: only occasional cigar in college years Vaping Use Vaping Use: Never used Substance Use Topics Alcohol use: No Drug use: No FAMILY HISTORY Problem Relation Age of Onset Cancer Mother Skin Cancer Father Heart Failure Father The review of systems data was entered by the nurse and reviewed by al Nursing Notes: Nelia Thomson LPN 03/24/2023 8:34 AM Signed REVIEW OF SYSTEMS: General: The patient NOTES fatigue, denies weight loss, denies weight gain, denies feeling hot, and denies feelings of cold. Eyes: The patient denies glaucoma, denies eye injury/surgery, does not wear glasses or contacts. Ear/Nose/Throat: The patient denies allergies, denies hayfever, denies ear infections, and denies bloody noses. Cardiovascular: The patient denies chest pain, denies heart disease, NOTES high blood pressure,denies cardiac stent, denies prior heart attack, denies irregular heart beat, denies high cholesterol, denies poor circulation, denies heart failure, other cardiac issues, denies claudication, denies cold feet, denies peripheral arterial stent. Respiratory: The patient denies tuberculosis, denies pneumonia, denies frequent cough, denies pulmonary embolism, denies shortness of breath, and denies coughing up blood. Gastrointestinal: The patient denies difficulty swallowing, denies acid reflux, denies ulcers, denies vomiting, denies jaundice/hepatitis, denies gallbladder problems, denies black or tarry stools, NOTES hemorrhoids, denies bleeding from rectum, denies diverticulitis, denies constipation, denies diarrhea, denies loss of stool control, and denies hernias. Kidney/Bladder: The patient denies kidney stones, denies urine infections, and denies bloody urine. Skin: The patient NOTES a history of skin cancer, denies bleeding/changing moles, and denies a history of skin rash. Neurologic: The patient denies a history of epilepsy/convulsions, denies headaches, denies head/spinal injuries, and denies stroke/TIA. Psychiatric: The patient denies psychiatric medications, NOTES depression, and denies voices, denies substance abuse. Endocrine: The patient denies thyroid disorders, denies diabetes, and denies hormonal problems. Hematologic: The patient denies a history of bruising, denies bleeding, and denies anemia, denies blood clots. Infections: The patient denies a history of measles and mumps, denies rheumatic fever, and denies sexually transmitted diseases. Musculoskeletal: The patient NOTES back pain/injury, NOTES back problems, denies sciatica, denies knee/foot trouble, denies arthritis, or denies gout. When was patient's last Mammogram screening? N/A Last Colonoscopy: 2016 Nelia Thomson LPN PHYSICAL EXAMINATION: General: The patient is 72 year old male, well nourished, well hydrated in no acute distress. The patient is oriented to time, place, and person. VITALS: Blood pressure 130/82, pulse 79, temperature 36.5 C (97.7 F), height 177.8 cm (5' 10 ), weight 106.2 kg (234 lb 3.2 oz), SpO2 95 %. Body mass index is 33.6 kg/m . Head: Normal cephalic, atraumatic Eyes: pupils are equally round, sclera are clear/anicteric Neck is supple with no tracheal deviation Cardiac: regular Respiratory: Normal respiratory excursion and pattern. Abdominal exam: benign Extremities: no clubbing, cyanosis or edema. Neuro: non focal Psych: normal mood Assessment IMPRESSION: history of colon polyp PLAN: I have discussed the above with the patient. I have offered colonoscopy , possible biopsies I have explained the procedure to the patient. I have counseled the patient as to the risks of the procedure, including but not limited to: infection, bleeding, injury to any intrabdominal organs such as liver/spleen, perforation of the GI tract, inability to complete the procedure, complications of anesthesia, etc. - the patient understands. The patient wishes to proceed. I have answered all questions to the patient s satisfaction and the patient has no further questions. My clinic staff has educated the patient as to the colon cleansing regimen and I have prescribed Golytely for the colon cleansing solution. The patient will be scheduled for the procedure at [facility] - he requests the date of April 19. Diagnoses: (Z86.010) History of colonic polyps (primary encounter diagnosis) I have confirmed and edited as necessary, the PFSH and ROS obtained by others. Medical Decision Making: Risk: Low: Low risk from testing/treatment Medical Decision Making Level: 2 - Straightforward Sierra Enciso MD documented in this encounter [facility] 03-24-2023 Nurse Note REVIEW OF SYSTEMS: General: The patient NOTES fatigue, denies weight loss, denies weight gain, denies feeling hot, and denies feelings of cold. Eyes: The patient denies glaucoma, denies eye injury/surgery, does not wear glasses or contacts. Ear/Nose/Throat: The patient denies allergies, denies hayfever, denies ear infections, and denies bloody noses. Cardiovascular: The patient denies chest pain, denies heart disease, NOTES high blood pressure,denies cardiac stent, denies prior heart attack, denies irregular heart beat, denies high cholesterol, denies poor circulation, denies heart failure, other cardiac issues, denies claudication, denies cold feet, denies peripheral arterial stent. Respiratory: The patient denies tuberculosis, denies pneumonia, denies frequent cough, denies pulmonary embolism, denies shortness of breath, and denies coughing up blood. Gastrointestinal: The patient denies difficulty swallowing, denies acid reflux, denies ulcers, denies vomiting, denies jaundice/hepatitis, denies gallbladder problems, denies black or tarry stools, NOTES hemorrhoids, denies bleeding from rectum, denies diverticulitis, denies constipation, denies diarrhea, denies loss of stool control, and denies hernias. Kidney/Bladder: The patient denies kidney stones, denies urine infections, and denies bloody urine. Skin: The patient NOTES a history of skin cancer, denies bleeding/changing moles, and denies a history of skin rash. Neurologic: The patient denies a history of epilepsy/convulsions, denies headaches, denies head/spinal injuries, and denies stroke/TIA. Psychiatric: The patient denies psychiatric medications, NOTES depression, and denies voices, denies substance abuse. Endocrine: The patient denies thyroid disorders, denies diabetes, and denies hormonal problems. Hematologic: The patient denies a history of bruising, denies bleeding, and denies anemia, denies blood clots. Infections: The patient denies a history of measles and mumps, denies rheumatic fever, and denies sexually transmitted diseases. Musculoskeletal: The patient NOTES back pain/injury, NOTES back problems, denies sciatica, denies knee/foot trouble, denies arthritis, or denies gout. When was patient's last Mammogram screening? N/A Last Colonoscopy: 2016 Nelia Thomson LPN documented in this encounter [facility] 03-20-2023 Miscellaneous Notes Patient wanted to have in person. Scheduled Images from the original note were not included. Sierra Enciso MD [facility] General Surgery Pool; [facility] Surg Scheduling Pool 9 minutes ago (3:49 PM) Patient can make a telehealth visit appointment with me Patient called in and is ready to schedule a colonoscopy. States he had a question about a result from the previous colonoscopy and wonders if that question can be answered during the call back. Farheen Dickens, RN Images from the original note were not included. Sierra Enciso MD You Just now (11:37 AM) You can tell patient that he is due now, thanks Called and left message for patient to call office back, needs to schedule colonoscopy consult. Berenice Sheets LPN Please advise the patient when he is due for colonoscopy recall. documented in this encounter [facility] 03-25-2022 History of Presen t illness Narrative Images from the original note were not included. [facility] ESTABLISHED PATIENT CLINIC NOTE Some elements copied from his previous note, which have been updated where appropriate, and all reflect current medical decision making from date of this visit. SERVICE DATE: 03/25/2022 SERVICE TIME: 10:06 AM NAME: Singh Park CHIEF COMPLAINT: BPH and Impotence HISTORY OF PRESENT ILLNESS: Singh Park is a 71 year old Male with PMH including Dermatitis presenting with BPH and Impotence follow-up The patient reports no LUTS and doing well on medications LUTS: Done Other symptoms: ED - yes LABS: No results found for: HCT PSA (ng/mL) Date Value 03/22/2022 2.14 09/23/2021 3.60 No results found for: TESTOST MEDICATIONS: GAS RELIEF, SIMETHICONE, ORAL Take 125 mg by mouth once daily. OTC PRODUCT Take by mouth once daily. Ageless Male omeprazole (PRILOSEC) 40 mg capsule once daily. tamsulosin (FLOMAX) 0.4 mg once daily. multivit-min/FA/lycopen/lutein (MEN 50 PLUS MULTIVITAMIN ORAL) Take by mouth once daily. docusate sodium (STOOL SOFTENER ORAL) Take by mouth once daily. cholecalciferol, vitamin D3, (VITAMIN D3 ORAL) Take by mouth once daily. Zinc 50 mg tab Take by mouth once daily. ascorbic acid (VITAMIN C ORAL) Take 1,000 mg by mouth once daily. Takes two tablets to equal 2000 MG Wnmgwdx-Mppxsduupqujk-Lefgaqkn (EXCEDRIN MIGRAINE) 250-250-65 mg per tablet Take 1 tablet by mouth every 6 hours as needed for pain. sildenafil (VIAGRA) 100 mg tablet 1 tablet 30 min prior to intercourse, on empty stomach and with sexual stimulation immediately following. gabapentin (NEURONTIN) 300 mg capsule Take 1,200 mg by mouth daily at bedtime. hydroCHLOROthiazide (HYDRODIURIL, ESIDRIX) 25 mg tablet Take 25 mg by mouth once daily. pravastatin (PRAVACHOL) 20 mg tablet Take 20 mg by mouth once daily. aspirin, enteric coated (ASPIRIN, ENTERIC COATED) 81 mg EC tablet Take 81 mg by mouth once daily. (Patient not taking: Reported on 03/25/2022) linaclotide (LINZESS) 145 mcg capsule Take 1 capsule by mouth once daily. (Patient not taking: Reported on 03/25/2022) sod picosulf-mag ox-citric ac (PREPOPIK) 10 mg-3.5 gram-12 gram pwpk Follow the instructions provided by your doctor. (Patient not taking: Reported on 03/25/2022) ELIDEL 1 % TOPICAL CREAM Apply to affected areas rosacea on face QD--BID as tolerated and taper as able when clear. (Patient not taking: Reported on 03/25/2022) ELIDEL 1 % TOPICAL CREAM Apply to affected areas rosacea on face QD--BID as tolerated and taper off as able when clear (Patient not taking: Reported on 03/25/2022) PAST MEDICAL HISTORY: PAST MEDICAL HISTORY Diagnosis Date Basal cell carcinoma of eye Constipation CPAP (continuous positive airway pressure) dependence Elevated prostate specific antigen (PSA) Essential hypertension, benign Restless leg syndrome PAST SURGICAL HISTORY: PAST SURGICAL HISTORY Procedure Laterality Date APPENDECTOMY 1958 COLONOSCOPY 2010 benign polyp - [facility] - repeat 5 years COLONOSCOPY 06/27/2016 repeat 5 years - 06/27/2021 MOHS ADDL STAGE Left 1986 TONSILLECTOMY AND ADENOIDECTOMY HX FAMILY HISTORY: FAMILY HISTORY Problem Relation Age of Onset Cancer Mother Skin Cancer Father Heart Failure Father SOCIAL HISTORY: Social Connections: Not on file REVIEW OF SYSTEMS: GENERAL: No fever, chills, weight loss, or fatigue. All other systems reviewed and are negative PHYSICAL EXAMINATION: Blood pressure 138/80, pulse 88, temperature 37.3 C (99.2 F), temperature source Temporal, height 177.8 cm (5' 10 ), weight 102.5 kg (226 lb), SpO2 96 %. GENERAL: WNL nutrition, no deformities, healthy appearing NEURO: Awake, alert and oriented x 3 and Normal gait PSYCH: No signs of depression, anxiety, or agitation ENMT (Ear, Nose, Mouth, Throat): No masses, adenopathy, icterus. Thyroid nonpalpable RESP: NL effort, no retractions or purse-lip breathing. CV: No extremity swelling, varices, edema, pallor, erythema GASTROINTESTINAL: Soft, nontender, nondistended, no masses. HERNIAS: None SKIN: No rash, lesions No palpable lymphadenopathy MUSCULOSKELETAL: Extremities normal. No deformities, edema, clubbing or skin discoloration. GENITOURINARY: MALE EXAM: Rectal Exam: Prostate: size (35 grams), symmetrical, nontender, w/o nodules. PROBLEM LIST REVIEW: Yes LABS: Results for orders placed or performed in visit on 03/25/22 UA DIP, URINE (POC) Result Value Ref Range GLUCOSE UA (POCT) Negative Negative mg/dL BILIRUBIN UA (POCT) Negative Negative KETONE UA (POCT) Negative Negative mg/dL SPECIFIC GRAVITY UA (POCT) 1.025 1.005 - 1.030 HEMOGLOBIN/BLOOD UA (POCT) Negative Negative PH UA (POCT) 6.0 4.5 - 8.0 PROTEIN UA (POCT) 30 (A) Negative mg/dL UROBILINOGEN UA (POCT) 0.2 Normal E.U./dL NITRITE UA (POCT) Negative Negative LEUKOCYTES UA (POCT) Negative Negative COLOR UA (POCT) Yellow CLARITY UA (POCT) Clear PROCEDURES: PVR: 0 ml IMAGING: IMPRESSION/PLAN: 71 year old male with . 1. Elevated prostate specific antigen (PSA) - ICD9: 790.93, ICD10: R97.20 (primary diagnosis) 2. 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 FLORI Dawson MT, PA-C with PSA prior FLORI Hawkins MT, PA-C Verified name and date of . CC Post Void Residual HPI: Singh Park is a 71 year old male. The patient is here now for an appointment with FLORI Hawkins MT, PA-COV. Procedure: Explained procedure to patient and verbalizes understanding. Performed a PVR. Patient urinated and instructed to empty bladder as much as possible just prior to having PVR done using bladder ultrasound scanner. Results of scan: 0 mL The patient tolerated the procedure well. Plan: Appointment with Will. documented in this encounter [facility] 03-23-2022 Miscellaneous Notes Results finalized. Please review and advise. Verified name and date of . Results still in progress. Will contact patient as soon as results are available and provider reviews. Cece Smith Patient called asking if his PSA result was back yet. Asking for office to call him with result when available. Ok to leave detailed VM with result per patient. Patient has appt with Will on Sunday 03/25. documented in this encounter [facility] 03-21-2022 Miscellaneous Notes Called patient. Verified name and date of . Patient informed PSA is ordered and okay to have it done before appointment on Monday. Verbalizes understanding. Maribel Murphy LPN Pt called in wanting to know if he needs to have bloodwork(PSA) before his appointment on Monday. Please advise patient if blood work is needed, otherwise he will just come in at normal appointment time. Bryanna Paulino RN documented in this encounter [facility] 09-28-2021 Miscellaneous Notes Images from the original note were not included. Nope, that is it exactly great job Thank you, Breanna Message text Verified name and date of . Phoned patient and validates understanding from 09/24/2021. Maribel Murphy LPN Phoned patient and validated understating. Patient called for recent PSA result. Patient given result of 3.6. Advised patient that Will Dawson PA-C had not commented on labs but per CHRISTIANE note since PSA <5 he most likely will only need to follow up in 6 months with repeat PSA. Patient verbalized understanding. Any different or further advice for patient? documented in this encounter [facility] Diagnosis History of colonic polyps- Primary Personal history of colonic polyps [facility] Diagnosis Elevated prostate specific antigen (PSA)- Primary Impotence of organic origin [facility] Diagnosis Screening for colon cancer- Primary Special screening for malignant neoplasms, colon History of colonic polyps Personal history of colonic polyps documented in this encounter [facility] for referral (narrative)* Outpatient Procedure (Routine) - Authorized Specialty Diagnoses / Procedures Referred By Torsten vasquez Referred To Contact [facility] [place] Diagnoses History of colonic polyps Procedures COLONOSCOPY SCREENING COLONOSCOPY FLX DX W/COLLJ SPEC WHEN Sierra Bloom MD [address] [place] [address] [facility] [address] [address] Referral ID Status Reason Start Date Expiration Date Visits Requested Visits Authorized [id number] Authorized Auto-Generat ed Referral 3 03/24/2024 [facility] Outpatient Procedure (Routine) - Closed Specialty Diagnoses / Procedures Referred By Torsten vasquez Referred To Contact [facility] Diagnoses History of colonic polyps Procedures COLONOSCOPY SCREENING COLONOSCOPY FLX DX W/COLLJ SPEC WHEN Sierra Bloom MD [address] [place] [address] [address] Referral ID Status Reason Start Date Expiration Date V isits Requested Visits Authorized [id number] Closed Auto-Generate d Referral 03/24/2023 03/24/2024 1 [facility] Outpatient Procedure (Routine) - Closed Specialty Diagnoses / Procedures Referred By Contac t Referred To Contact [facility] [place] Diagnoses History of colonic polyps Procedures COLONOSCOPY SCREENING COLONOSCOPY FLX DX W/COLLJ SPEC WHEN Sierra Bloom MD [address] [place] [address] [address] Referral ID Status Reason Start Date Expiration Date V isits Requested Visits Authorized [id number] Closed Auto-Generate d Referral 03/24/2023 03/24/2024 1 1 [facility] Advance Directives No Advanced Directives Records FoundDocuments on File Type Date Recorded 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 Advance Directive(s) 06/27/2016 7:27 AM Medications Administered Section Inactive Administered Medications - up to 3 most recent administrations Medication Order MAR Action Action Date Dose Rate Site diphenhydrAMINE 12.5-50 mg injection (BENADRYL) 12.5-50 mg, INTRAVENOUS, DIRECTED, Starting on Mon04/19/23 at 0800, Until Mon04/19/23 at 1159, DOSING DIRECTED BY PHYSICIAN FOR PROCEDURAL SEDATION ONLY, Intraprocedure Given 04/19/2023 7:42 AM EST 50 mg fentaNYL 50 mcg/mL 25-100 mcg injection (SUBLIMAZE) 25-100 mcg, INTRAVENOUS, DIRECTED, Starting on Mon04/19/23 at 0800, Until Mon04/19/23 at 1159, DOSING DIRECTED BY PHYSICIAN FOR PROCEDURAL SEDATION ONLY, Intraprocedure Given 04/19/2023 7:50 AM EST 50 mcg Summary Purpose Family History No Family History Records Found Additional Source Comments Source Comments (unrecognize d section and content) In the event this informatio n is protected by the Federal Confidentiality of Alcohol and Drug Abuse Patient Records regulations: The Federal rules restrict any use of the information to criminally investigate or prosecute any alcohol or drug abuse patient.[facility] the event this information is protected by the Federal Confidentiality of Alcohol and Drug Abuse Patient Records regulations: The Federal rules restrict any use of the information to criminally investigate or prosecute any alcohol or drug abuse patient.[facility] the event this information is protected by the Federal Confidentiality of Alcohol and Drug Abuse Patient Records regulations: The Federal rules restrict any use of the information to criminally investigate or prosecute any alcohol or drug abuse patient.[facility] the event this information is protected by the Federal Confidentiality of Alcohol and Drug Abuse Patient Records regulations: The Federal rules restrict any use of the information to criminally investigate or prosecute any alcohol or drug abuse patient.[facility] the event this information is protected by the Federal Confidentiality of Alcohol and Drug Abuse Patient Records regulations: The Federal rules restrict any use of the information to criminally investigate or prosecute any alcohol or drug abuse patient.[facility] the event this information is protected by the Federal Confidentiality of Alcohol and Drug Abuse Patient Records regulations: The Federal rules restrict any use of the information to criminally investigate or prosecute any alcohol or drug abuse patient.[facility] the event this information is protected by the Federal Confidentiality of Alcohol and Drug Abuse Patient Records regulations: The Federal rules restrict any use of the information to criminally investigate or prosecute any alcohol or drug abuse patient.[facility] the event this information is protected by the Federal Confidentiality of Alcohol and Drug Abuse Patient Records regulations: The Federal rules restrict any use of the information to criminally investigate or prosecute any alcohol or drug abuse patient.[facility] Reason for Visit (unrecogniz ed section and content) Reason Comments Appointment Orders Reason Comments Follow Up Reason Comments Patient Question Reason Comments Consult colonoscopy Reason Comments Follow Up Elevated PSA Erectile Dysfunction Care Teams (unrecognized sec tion and content) 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 Relationship Specialty Start Date End Date Jazmin Frost [address] [place] [address] PCP - General Family Medicine 03/26/21 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 Relationship Specialty Start Date End Date Jazmin Frost [address] [place] [address] PCP - General Family Medicine 03/26/21 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 Relationship Specialty Start Date End Date Jazmin Frost [address] [place] [address] PCP - General Family Medicine 03/26/21 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 Relationship Specialty Start Date End Date Jazmin Frost [address] [place] [address] PCP - General Family Medicine 03/26/21 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 Relationship Specialty Start Date End Date Jazmin Frost [address] [place] [address] PCP - General Family Medicine 03/26/21 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 This clinical summary was aggregated from multiple sources. Caution should be exercised in using it in the provision of clinical care. This summary normalizes information from multiple sources, and as a consequence, information in this document may materially change the coding, format and clinical context of patient data. In addition, data may be omitted in some cases. CLINICAL DECISIONS SHOULD BE BASED ON THE PRIMARY CLINICAL RECORDS. [employer] provides no warranty or guarantee of the accuracy or completeness of information in this document.
[2023-04-27 10:34] LABS: Calcium, Urine (Random) 6.8 mg/dL (Not Estab.)
== END | disposition home or self-care (01) ==
LOC: MFPLAB 08:07
PROVIDERS: PCP Family Medicine; Visit Provider Family Medicine
DX: E83.52 Hypercalcemia (principal)
CPT/HCPCS: 82340

== ENCOUNTER → 2023-04-28 | Outpatient (CLI) | payer MEDICARE, SELFPAY ==
[2023-04-28 16:49] LABS: 24HR. Urine Creatinine 1.31 g/24 HR (0.90-2.10)
== END | disposition home or self-care (01) ==
LOC: LAB 14:47
PROVIDERS: PCP Family Medicine; Visit Provider Family Medicine
DX: E83.52 Hypercalcemia (principal)
CPT/HCPCS: 81050; 82570

== ENCOUNTER → 2023-07-10 | Outpatient (CLI) | payer MEDICARE, SELFPAY ==
--- OUTSIDE RECORDS SUMMARY | 2023-07-10 10:37 | XMS RPT_ITS | CCD ---
Author Name Unknown Address [address] [place] [address] Organization [facility] Care Team Providers Care Cake Puller Name Role Phone Jazmin Frost Primary Care Provider JAZMIN FROST Primary Care Unavailable SIERRA ENCISO Referring Unavailable SIERRA ENCISO Attending Unavailable JAZMIN FROST Primary Care Unavailable WILL DAWSON Attending Unavailable JAZMIN FROST Primary Care Unavailable WILL DAWSON Referring Unavailable JAZMIN FROST Primary Care Unavailable SIERRA ECNISO Attending Unavailable Allergies Allergy Classification Reported Allergen(s) Allergy Type Date of Onset Reaction(s) Facility (2 sources) Penicillins; Translations: [PENICILLINS] Drug Allergy 06-26-2006 [facility] (9 sources) Sulfonamides (Antibiotic); Translations: [SULFA (SULFONAMIDE ANTIBIOTICS)] Drug Allergy 03-26-2021 [facility] Work Phone: (7 sources) Penicillins Drug Allergy 06-26-2006 [facility] Medications Completed/Discontinued Medications Medication Drug Class(es) Dates [...] Date Time Vital Sign Value Performing Clinician Faci lity 04-19-2023 08:45-0500 Diastolic blood pressure 84 mm[Hg] Sierra Enciso MD Work Phone: [facility] 04-19-2023 08:45-0500 Heart rate 85 /min Sierra Enciso MD Work Phone: [facility] 04-19-2023 08:45-0500 Respiratory rate 16 /min Sierra Enciso MD Work Phone: [facility] 04-19-2023 08:45-0500 SaO2% (BldA) [Mass fraction] 93 % Sierra Enciso MD Work Phone: [facility] 04-19-2023 08:45-0500 Systolic blood pressure 153 mm[Hg] Sierra Enciso MD Work Phone: [facility] 04-19-2023 07:00-0500 Body temperature 98.4 [degF] Sierra Enciso MD Work Phone: [facility] 04-19-2023 07:00-0500 Body weight 105 kg Sierra Enciso MD Work Phone: [facility] 04-04-2023 09:29-0500 Body height 177.8 cm Will Dawson PA-C Work Phone: [facility] 04-04-2023 09:29-0500 Body temperature 98.49 [degF] Will Dawson PA-C Work Phone: [facility] 04-04-2023 09:29-0500 Body weight 104.96 kg Will Dawson PA-C Work Phone: [facility] 04-04-2023 09:29-0500 Diastolic blood pressure 86 mm[Hg] Will Dawson PA-C Work Phone: [facility] 04-04-2023 09:29-0500 Heart rate 80 /min Will Dawson PA-C Work Phone: [facility] 04-04-2023 09:29-0500 Respiratory rate 14 /min Will Dawson PA-C Work Phone: [facility] 04-04-2023 09:29-0500 SaO2% (BldA) [Mass fraction] 95 % Will Dawson PA-C Work Phone: [facility] 04-04-2023 09:29-0500 Systolic blood pressure 140 mm[Hg] Will Dawson PA-C Work Phone: [facility] 03-24-2023 08:33-0500 Body height 177.8 cm Sierra Enciso MD Work Phone: [facility] 03-24-2023 08:33-0500 Body temperature 97.7 [degF] Sierra Enciso MD Work Phone: [facility] 03-24-2023 08:33-0500 Body weight 106.23 kg Sierra Enciso MD Work Phone: [facility] 03-24-2023 08:33-0500 Diastolic blood pressure 82 mm[Hg] Sierra Enciso MD Work Phone: [facility] 03-24-2023 08:33-0500 Heart rate 79 /min Sierra Enciso MD Work Phone: [facility] 03-24-2023 08:33-0500 SaO2% (BldA) [Mass fraction] 95 % Sierra Enciso MD Work Phone: [facility] 03-24-2023 08:33-0500 Systolic blood pressure 130 mm[Hg] Sierra Enciso MD Work Phone: [facility] 03-25-2022 09:48-0500 Body height 177.8 cm Will Dawson PA-C Work Phone: [facility] 03-25-2022 09:48-0500 Body temperature 99.19 [degF] Will Dawson PA-C Work Phone: [facility] 03-25-2022 09:48-0500 Body weight 102.51 kg Will Dawson PA-C Work Phone: [facility] 03-25-2022 09:48-0500 Diastolic blood pressure 80 mm[Hg] Will Dawson PA-C Work Phone: [facility] 03-25-2022 09:48-0500 Heart rate 88 /min Will LORD-Andreina Work Phone: [facility] 03-25-2022 09:48-0500 SaO2% (BldA) [Mass fraction] 96 % Will LORD-Andreina Work Phone: [facility] 03-25-2022 09:48-0500 Systolic blood pressure 138 mm[Hg] Will LORD-Andreina Work Phone: [facility] Encounters Encounter Date Encounter Type Care Provider Facility Start: 04-19-2023 End: 04-19-2023 ambulatory JAZMIN FROST Facility:[facility] Start: 04-19-2023 End: 04-19-2023 Subsequent hospital visit [...] stick/tabl et rgnt auto w/o microscopy Will LORD-C Work Phone: Start: 03-25-2022 Urnls dip stick/tabl et rgnt auto w/o microscopy Will LORD-C Work Phone: Start: 06-27-2016 Colonoscopy Will LORD-Andreina Work Phone: Plan of Treatment Date Care Activity Detail Author Start: 04-19-2028 Screening for malign ant neoplasm of colon [facility] Start: 09-17-2025 Urine microalbumin profile DTaP,Tdap,Td Vaccine (2 - Td or Tdap) [facility] Start: 04-04-2024 End: 07-04-2024 Prostate specific Ag [Mass/volume] in Serum or Plasma PSA/PROSTSPECAG DIAG Lab Routine Elevated prostate specific antigen (PSA) Impotence of organic origin Expected: 04/04/2024 (Approximate), Expires: 07/04/2024 [facility] Work Phone: Immunizations Immunization Date Immunization Notes Care Provider Sera kennedy 01-15-2022 influenza virus vacc ine, unspecified formulation Sierra Enciso MD Work Phone: [facility] Payers Date Payer Category Payer Medicare [employer] MEDICARE A ETNA MEDICARE PPO [id number] 2021-Present [phone] [address] [place] [address] PPO [id number] 2021 Medicare [employer] MEDICARE A ETNA MEDICARE PPO [id number] 2021-Present [phone] [address] [place] [address] PPO [id number] 2021 Medicare [id number] Social History Date Type Detail Facility Start: 06-08-2016 End: 03-24-2023 Tobacco smoking status NHIS Ex-smoker [facility] Start: 06-08-2016 End: 03-24-2023 Tobacco use and exposure Smokeless tobacco non-user [facility] Start: 03-26-2021 End: 03-24-2023 Alcohol intake Current non-drinker of alcohol (finding) [facility] Start: 06-08-2016 End: 03-24-2023 Tobacco Comment only occasional cigar in college years [facility] Start: 1950 Sex Assigned At Not on file C [facility] History of tobacco use Current smoker [facility] Start: 03-15-2022 End: 03-25-2022 Exposure to SARS-CoV-2 (event) Not sure [facility] Start: 03-25-2022 End: 03-24-2023 History of Social function [facility] Start: 03-25-2022 End: 03-24-2023 Tobacco use panel [facility] National Score (1-10 0), lower number is lower risk 56 [facility] Start: 04-04-2023 End: 04-19-2023 Alcohol intake Ex-drinker (finding) [facility] Clinical Notes 09-28-2021 to 04-19-2023 Luciana Irene RN - 04/19/2023 8:15 AM Sierra Bower MD - 04/19/2023 7:30 AM Sierra Bower MD - 04/19/2023 7:30 AM ESTPatient JaQuentinMaribel schwartz ANDREINA - 04/04/2023 9:22 AM EST Note Date & Type Note Facility 04-19-2023 Nurse Note Patient received in phase II via cart in left lateral position, eyes closed but open to verbal stimuli, skin warm and dry, respirations regular and unlabored, abdomen soft and non distended, denies pain, nausea or cramping, resting comfortably on left side. documented in this encounter [facility] 04-19-2023 History and physical note UPDATED PROCEDURAL [...] in the Electronic Medical Record SIGNATURE: Sierra Enciso MD PATIENT NAME: Edna Park DATE: April 19, 2023 TIME: 7:38 AM Source Note - Sierra Enciso MD - 04/19/2023 7:30 AM EST HISTORY AND PHYSICAL Edna Park 1950 REFERRING PHYSICIAN: No ref. provider found CHIEF COMPLAINT: Consult (colonoscopy) HPI: The patient is a 72 year old male referred for endoscopy. Edna notes no GI complaints. He last had [...] APPENDECTOMY 1957 COLONOSCOPY 2010 benign polyp - [facility] - repeat 5 years COLONOSCOPY 06/27/2016 repeat 5 years - 06/27/2021 MOHS ADDL STAGE Left 1987 REPAIR UMBILICAL HERNIA TONSILLECTOMY AND ADENOIDECTOMY HX CURRENT MEDICATIONS Current Outpatient Medications Medication Sig sertraline (ZOLOFT) 100 mg tablet Take 25 mg by mouth once daily. mv-mn/FA/lycop/[place] 3,6,9 #3 (MEN'S 50+ ADVANCED ORAL) Take [...] Takes two tablets to equal 2000 MG Yszxoce-Nwswcarzlrjti-Zfyhgmxf (EXCEDRIN MIGRAINE) 250-250-65 mg per tablet Take [...] entered by the nurse and reviewed by co Nursing Notes: Nelia Thomson LPN 03/24/2023 8:34 [...] questions. Sierra Enciso MD HISTORY AND PHYSICAL Edna Park 1950 REFERRING PHYSICIAN: No ref. provider found CHIEF COMPLAINT: Consult (colonoscopy) HPI: The patient is a 72 year old male referred for endoscopy. Edna notes no GI complaints. He last had [...] APPENDECTOMY 1957 COLONOSCOPY 2010 benign polyp - [facility] - repeat 5 years COLONOSCOPY 06/27/2016 repeat 5 years - 06/27/2021 MOHS ADDL STAGE Left 1987 REPAIR UMBILICAL HERNIA TONSILLECTOMY AND ADENOIDECTOMY HX CURRENT MEDICATIONS Current Outpatient Medications Medication Sig sertraline (ZOLOFT) 100 mg tablet Take 25 mg by mouth once daily. mv-mn/FA/lycop/[place] 3,6,9 #3 (MEN'S 50+ ADVANCED ORAL) Take [...] Takes two tablets to equal 2000 MG Blksnoi-Qflaayqqinchd-Grprtdhp (EXCEDRIN MIGRAINE) 250-250-65 mg per tablet Take [...] Sierra Enciso MD documented in this encounter [facility] 04-04-2023 Note HNO ID: [id number] Author: Will Dawson PA-C Service: ? Author Type: Physician [employer] Superintendent Type: Progress Notes Filed: 04/04/2023 10:06 AM Note Text: [facility] PATIENT CLINIC NOTE Some elements copied from his previous note, which have been updated where appropriate, and all reflect current medical decision making from date of this visit. NAME: Edna Park CHIEF COMPLAINT: BPH and Impotence HISTORY OF PRESENT ILLNESS: Edna Park is a 72 year old Male [...] D3 ORAL) Take by mouth once daily. Vzudpud-Bpdpfsyhlqlpa-Cunghdvs (EXCEDRIN MIGRAINE) 250-250-65 mg per tablet Take [...] Take 25 mg by mouth once daily. mv-mn/FA/lycop/[place] 3,6,9 #3 (MEN'S 50+ ADVANCED ORAL) Take [...] APPENDECTOMY 1957 COLONOSCOPY 2010 benign polyp - [facility] - repeat 5 years COLONOSCOPY 06/27/2016 [...] LEUKOCYTES UA (POCT) (more content not included)... [facility] 04-04-2023 Note HNO ID: [id number] Author: Maribel Murphy LPN Service: ? Author Type: ? Type: Progress Notes Filed: 04/04/2023 10:06 AM Note Text: Verified name and date of . CC Post Void Residual HPI: Edna Park is a 72 year old male. [...] the procedure well. Plan: Appointment with Will. [facility] 04-04-2023 Instructions Will Dawson PA-C - 04/04/2023 9:42 AM EST > 1 year Appt w/ B. FLORI Dawson, COLLETTE AGUILAR with PSA prior documented in this encounter [facility] 04-04-2023 History of Presen t illness Narrative Images from the original note were not included. [facility] PATIENT CLINIC NOTE Some elements copied from his previous note, which have been updated where appropriate, and all reflect current medical decision making from date of this visit. NAME: Edna Park CHIEF COMPLAINT: BPH and Impotence HISTORY OF PRESENT ILLNESS: Edna Park is a 72 year old Male [...] D3 ORAL) Take by mouth once daily. Fwoyira-Hsoqmmnngobcr-Majyksqf (EXCEDRIN MIGRAINE) 250-250-65 mg per tablet Take [...] Take 25 mg by mouth once daily. mv-mn/FA/lycop/[place] 3,6,9 #3 (MEN'S 50+ ADVANCED ORAL) Take [...] APPENDECTOMY 1957 COLONOSCOPY 2010 benign polyp - [facility] - repeat 5 years COLONOSCOPY 06/27/2016 [...] of . CC Post Void Residual HPI: Edna Park is a 72 year old male. [...] Appointment with Will. documented in this encounter [facility] 03-24-2023 Note HNO ID: [id number] Author: Sierra Enciso MD Service: ? Author Type: Physician Type: Progress Notes Filed: 03/24/2023 1:30 PM Note Text: HISTORY AND PHYSICAL Edna Park 1950 REFERRING PHYSICIAN: No ref. provider found CHIEF COMPLAINT: Consult (colonoscopy) HPI: The patient is a 72 year old male referred for endoscopy. Edna notes no GI complaints. He last had [...] APPENDECTOMY 1957 COLONOSCOPY 2010 benign polyp - [facility] - repeat 5 years COLONOSCOPY 06/27/2016 repeat 5 years - 06/27/2021 MOHS ADDL STAGE Left 1987 REPAIR UMBILICAL HERNIA TONSILLECTOMY AND ADENOIDECTOMY HX Current Outpatient Medications Medication Sig sertraline (ZOLOFT) 100 mg tablet Take 25 mg by mouth once daily. mv-mn/FA/lycop/[place] 3,6,9 #3 (MEN'S 50+ ADVANCED ORAL) Take [...] Takes two tablets to equal 2000 MG Hbtjdtb-Vaibwyofjjsdu-Hewxygrw (EXCEDRIN MIGRAINE) 250-250-65 mg per tablet Take [...] entered by the nurse and reviewed by co Nursing Notes: Nelia Thomson LPN 03/24/2023 8:34 [...] patient denies diff (more content not included)... [facility] 03-24-2023 Instructions Sierra Enciso MD - 03/24/2023 [...] If you do not have a responsible tram driver (family member or friend) with you to take you home, your exam cannot be done with sedation and will be cancelled. Please bring a list of all of your current medications, including any Qjxo-xcb-Pahipbf medications with you. Medications If you take [...] exam. 2 03/2019 documented in this encounter [facility] 03-24-2023 History of Presen t illness Narrative HISTORY AND PHYSICAL Edna Park 1950 REFERRING PHYSICIAN: No ref. provider found CHIEF COMPLAINT: Consult (colonoscopy) HPI: The patient is a 72 year old male referred for endoscopy. Edna notes no GI complaints. He last had [...] APPENDECTOMY 1957 COLONOSCOPY 2010 benign polyp - [facility] - repeat 5 years COLONOSCOPY 06/27/2016 repeat 5 years - 06/27/2021 MOHS ADDL STAGE Left 1987 REPAIR UMBILICAL HERNIA TONSILLECTOMY AND ADENOIDECTOMY HX Current Outpatient Medications Medication Sig sertraline (ZOLOFT) 100 mg tablet Take 25 mg by mouth once daily. mv-mn/FA/lycop/[place] 3,6,9 #3 (MEN'S 50+ ADVANCED ORAL) Take [...] Takes two tablets to equal 2000 MG Ofuiqwv-Dcpzhhdymcaer-Syhijhib (EXCEDRIN MIGRAINE) 250-250-65 mg per tablet Take [...] entered by the nurse and reviewed by co Nursing Notes: Nelia Thomson LPN 03/24/2023 8:34 [...] will be scheduled for the procedure at [facility] - he requests the date of April 19. Diagnoses: (Z86.010) History of colonic polyps (primary encounter diagnosis) I have confirmed and edited as necessary, the PFSH and ROS obtained by others. Medical Decision Making: Risk: Low: Low risk from testing/treatment Medical Decision Making Level: 2 - Straightforward Sierra Enciso MD documented in this encounter [facility] 03-24-2023 Nurse Note REVIEW OF SYSTEMS: General: [...] Nelia Thomson LPN documented in this encounter [facility] 03-20-2023 Miscellaneous Notes Patient wanted to have in person. Scheduled Images from the original note were not included. Sierra Enciso MD [facility] General Surgery Pool; [facility] Surg Scheduling Pool 9 minutes ago (3:49 PM) Patient can make a telehealth visit appointment with me Patient called in and is ready to schedule a colonoscopy. States he had a question about a result from the previous colonoscopy and wonders if that question can be answered during the call back. Farheen Dickens RN Images from the original note were not included. Sierra Enciso MD You Just now (11:37 AM) You can tell patient that he is due now, thanks Called and left message for patient to call office back, needs to schedule colonoscopy consult. Berenice Sheets LPN Please advise the patient when he is due for colonoscopy recall. documented in this encounter [facility] 03-25-2022 History of Presen t illness Narrative Images from the original note were not included. [facility] PATIENT CLINIC NOTE Some elements copied from his previous note, which have been updated where appropriate, and all reflect current medical decision making from date of this visit. SERVICE DATE: 03/25/2022 SERVICE TIME: 10:06 AM NAME: Edna Park CHIEF COMPLAINT: BPH and Impotence HISTORY OF PRESENT ILLNESS: Edna Park is a 71 year old Male [...] Takes two tablets to equal 2000 MG Offdcoc-Ejeajqhzkdgps-Ufxushad (EXCEDRIN MIGRAINE) 250-250-65 mg per tablet Take [...] APPENDECTOMY 1957 COLONOSCOPY 2010 benign polyp - [facility] - repeat 5 years COLONOSCOPY 06/27/2016 repeat 5 years - 06/27/2021 MOHS ADDL STAGE Left 1987 TONSILLECTOMY AND ADENOIDECTOMY HX FAMILY HISTORY: FAMILY [...] > Flomax > 1 year Appt w/ FLORI Cole MT, PA-C with PSA prior FLORI Hawkins MT, PA-C Verified name and date of . CC Post Void Residual HPI: Edna Park is a 71 year old male. [...] Appointment with Will. documented in this encounter [facility] 03-23-2022 Miscellaneous Notes Results finalized. Please review [...] on Sunday 03/25. documented in this encounter [facility] 03-21-2022 Miscellaneous Notes Called patient. Verified name [...] Bryanna Paulino RN documented in this encounter [facility] 09-28-2021 Miscellaneous Notes Images from the original [...] advice for patient? documented in this encounter [facility] Diagnosis History of colonic polyps- Primary Personal history of colonic polyps [facility] Diagnosis Elevated prostate specific antigen (PSA)- Primary Impotence of organic origin [facility]* Diagnosis Screening for colon cancer- Primary Special screening for malignant neoplasms, colon History of colonic polyps Personal history of colonic polyps documented in this encounter [facility] for referral (narrative)* Outpatient Procedure (Routine) - Authorized Specialty Diagnoses / Procedures Referred By Torsten vasquez Referred To Contact [facility] Diagnoses History of colonic polyps Procedures COLONOSCOPY SCREENING COLONOSCOPY FLX DX W/COLLJ SPEC WHEN Sierra Bloom MD [address] [place] [address] [address] Referral ID Status Reason Start Date Expiration Date Visits Requested Visits Authorized [id number] Authorized Auto-Generat ed Referral 3 03/24/2024 [facility] Outpatient Procedure (Routine) - Closed Specialty Diagnoses / Procedures Referred By Torsten vasquez Referred To Contact [facility] Diagnoses History of colonic polyps Procedures COLONOSCOPY SCREENING COLONOSCOPY FLX DX W/COLLJ SPEC WHEN Sierra Bloom MD [address] [place] [address] [address] Referral ID Status Reason Start Date Expiration Date V isits Requested Visits Authorized [id number] Closed Auto-Generate d Referral 03/24/2023 03/24/2024 1 1 [facility] Outpatient Procedure (Routine) - Closed Specialty Diagnoses / Procedures Referred By Contac t Referred To Contact [facility] Diagnoses History of colonic polyps Procedures COLONOSCOPY SCREENING COLONOSCOPY FLX DX W/COLLJ SPEC WHEN Sierra Bloom MD [address] [facility] [place] [address] [address] Referral ID Status Reason Start Date Expiration Date V isits Requested Visits Authorized [id number] Closed Auto-Generate d Referral 03/24/2023 03/24/2024 1 1 [facility] Advance Directives No Advanced Directives Records FoundDocuments on File Type Date Recorded Patient Sports 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 anation Advance Directive(s) 06/27/2016 7:27 AM [...] or prosecute any alcohol or drug abuse patient.[facility] the event this information is protected by the Federal Confidentiality of Alcohol and Drug Abuse Patient Records regulations: The Federal rules restrict any use of the information to criminally investigate or prosecute any alcohol or drug abuse patient.[facility] the event this information is protected by the Federal Confidentiality of Alcohol and Drug Abuse Patient Records regulations: The Federal rules restrict any use of the information to criminally investigate or prosecute any alcohol or drug abuse patient.[facility] the event this information is protected by the Federal Confidentiality of Alcohol and Drug Abuse Patient Records regulations: The Federal rules restrict any use of the information to criminally investigate or prosecute any alcohol or drug abuse patient.[facility] the event this information is protected by the Federal Confidentiality of Alcohol and Drug Abuse Patient Records regulations: The Federal rules restrict any use of the information to criminally investigate or prosecute any alcohol or drug abuse patient.[facility] the event this information is protected by the Federal Confidentiality of Alcohol and Drug Abuse Patient Records regulations: The Federal rules restrict any use of the information to criminally investigate or prosecute any alcohol or drug abuse patient.[facility] the event this information is protected by the Federal Confidentiality of Alcohol and Drug Abuse Patient Records regulations: The Federal rules restrict any use of the information to criminally investigate or prosecute any alcohol or drug abuse patient.[facility] the event this information is protected by the Federal Confidentiality of Alcohol and Drug Abuse Patient Records regulations: The Federal rules restrict any use of the information to criminally investigate or prosecute any alcohol or drug abuse patient.[facility] Reason for Visit (unrecogniz ed section and content) Reason Comments Appointment Orders Reason Comments Follow Up Reason Comments Patient Question Reason Comments Consult colonoscopy Reason Comments Follow Up Elevated PSA Erectile Dysfunction Care Teams (unrecognized sec tion and content) Cake Puller Relationship Specialty Start Date End Date Jazmin Frost [address] [place] [address] PCP - General Family Medicine 03/26/21 Cake Puller Relationship Specialty Start Date End Date Jazmin Frost [address] [facility] [address] [place] [address] PCP - General Family Medicine 03/26/21 Cake Puller Relationship Specialty Start Date End Date Jazmin Frost [address] [facility] [address] [place] [address] PCP - General Family Medicine 03/26/21 Cake Puller Relationship Specialty Start Date End Date Jazmin Frost [address] [facility] [address] [place] [address] PCP - General Family Medicine 03/26/21 Cake Puller Relationship Specialty Start Date End Date Jazmin Frost [address] [facility] [address] [place] [address] PCP - General Family Medicine 03/26/21 Cake Puller Relationship Specialty Start Date End Date Jazmin Frost [address] [facility] [address] [place] [address] PCP - General Family Medicine 03/26/21 Cake Puller Relationship Specialty Start Date End Date Jazmin Frost [address] [facility] [address] [place] [address] PCP - General Family Medicine 03/26/21 (unrecognized [...] BE BASED ON THE PRIMARY CLINICAL RECORDS. [employer] provides no warranty or guarantee of the accuracy or completeness of information [id number]
[2023-07-10 12:53] LABS: PTHIN 62.4 pg/mL (18.4-80.1)
[2023-07-10 12:55] LABS: Vitamin D,25 Hydroxy 63.8 ng/mL
[2023-07-10 13:29] LABS: Anion Gap 8 (5-15); BUN 24 mg/dL (7-18); Calcium,Total 9.7 mg/dL (8.5-10.1); Chloride 109 mmol/L (98-107); EST Glomerular Filtration Rate 78 mL/min (>60); Est Glom Filt Rate - Afr Amer 94 mL/min (>60); Glucose 103 mg/dL (74-106); Sodium Level 141 mmol/L (136-145)
== END | disposition home or self-care (01) ==
LOC: MFPLAB 10:04
PROVIDERS: PCP Family Medicine; Visit Provider Family Medicine
DX: I10 Essential (primary) hypertension (principal)
CPT/HCPCS: 36415; 80048; 82306; 83970

== ENCOUNTER → 2024-01-08 | Outpatient (CLI) | payer MEDICARE, SELFPAY ==
[2024-01-08 15:49] LABS: Vitamin D,25 Hydroxy 43.2 ng/mL
[2024-01-08 16:03] LABS: PTHIN 65.9 pg/mL (18.4-80.1)
[2024-01-08 18:02] LABS: Calcium,Total 10.1 mg/dL (8.5-10.1)
[2024-01-08 18:31] LABS: PSA,Total - Annual Screen 3.31 ng/mL (0.00-4.00)
== END | disposition home or self-care (01) ==
LOC: MFPLAB 11:23
PROVIDERS: PCP Family Medicine; Visit Provider Family Medicine
DX: Z12.5 Encounter for screening for malignant neoplasm of prostate (principal); E83.52 Hypercalcemia; E87.6 Hypokalemia
CPT/HCPCS: 36415; 82306; 82310; 83970; 84153; G0103

== ENCOUNTER → 2025-01-13 | Outpatient (CLI) | payer MEDICARE, SELFPAY ==
[2025-01-13 12:04] LABS: Hematocrit 41.6 % (40-54); Hemoglobin 13.9 g/dL (13.0-16.5); Mean Corp Hgb Conc 33.4 g/dL (32-36); Mean Corpuscular Volume 96.5 fL (80-94); Mean Platelet Vol. 9.5 fl (6.2-12.0); Platelet Count 177 K/mm3 (150-450); RBC Distribution Width CV 13.6 % (11.6-14.6); RBC Distribution Width SD 49.1 fl (35.1-43.9); Red Blood Count 4.31 M/mm3 (4.6-6.2); White Blood Count 4.9 K/mm3 (4.4-11.0)
[2025-01-13 13:01] LABS: PTHIN 60 pg/mL (11-61)
[2025-01-13 13:45] LABS: AST(SGOT) 33 U/L (<=37); Alanine Aminotransfer ALT/SGPT 19 U/L (<=46); Albumin, Serum 4.3 g/dL (3.4-4.8); Alkaline Phosphatase 77 U/L (40-129); Anion Gap 12 (5-15); BUN 19 mg/dL (4-19); BUN/Creat Ratio 18.0 RATIO (10-20); Calcium,Total 10.1 mg/dL (7.6-11.0); Carbon Dioxide 23.6 mmol/L (21.0-32.0); Chloride 107 mmol/L (98-108); Cholesterol 130 mg/dL (<=200); Globulin 2.7 g/dL (2.2-4.2); Glucose 105 mg/dL (70-99); Low Density Lipoprotein Calc. 74 mg/dL; PSA,Total - Annual Screen 2.27 ng/mL (0.02-4.00); Potassium 4.6 mmol/L (3.3-5.1); Triglycerides 52 mg/dL; Very Low Density Lipoprotein 10 mg/dL (5-40); Vitamin D,25 Hydroxy 47.4 ng/mL (30-100); cholesterol:hdl ratio screen 2.83
== END | disposition home or self-care (01) ==
LOC: MFPLAB 09:38
PROVIDERS: PCP Family Medicine; Visit Provider Family Medicine
DX: I10 Essential (primary) hypertension (principal); R97.20 Elevated prostate specific antigen [PSA]; E78.5 Hyperlipidemia, unspecified; R73.03 Prediabetes; E83.52 Hypercalcemia
CPT/HCPCS: 36415; 80053; 80061; 82306; 83036; 83970; 84153; 85027; G0103